=== PATIENT | female | born 1965 | race Caucasian/White ===

== ENCOUNTER → 2020-01-07 | Emergency (ER) | payer SELFPAY | END | disposition left against medical advice (07) | LOC: ER FS 18:08 | DX: M79.605 Pain in left leg (principal); W19.XXXA Unspecified fall, initial encounter ==

== ENCOUNTER → 2020-02-01 | Outpatient (CLI) | payer BC ==
--- NOTE | 2020-02-01 10:37 | Diagnostic Imaging Report ---
INDICATION: Left ankle pain, fall. COMPARISON: None. FINDINGS: Three views of the left ankle demonstrate no fracture or dislocation. The articular surfaces are age-appropriate. No osseous lesion or foreign body. IMPRESSION: No fracture identified. Dictated by: Dictated on workstation # [id number]
== END ==
LOC: RAD FS 09:42
PROVIDERS: ATTEND Nurse Practitioner
DX: M25.572 Pain in left ankle and joints of left foot (principal); W19.XXXA Unspecified fall, initial encounter
CPT/HCPCS: 73610

== ENCOUNTER → 2020-02-05 | Outpatient (CLI) | payer BC ==
--- NOTE | 2020-02-05 10:39 | Diagnostic Imaging Report ---
PROCEDURE: MRI left joint lower extremity without contrast. TECHNIQUE: Multiplanar, multisequence non contrast-enhanced MRI of the left lower extremity was accomplished. INDICATION: Twisting injury a month ago. Possible ruptured Achilles tendon. Pain. EXAMINATION: Left lower extremity MRI from 02/05/2020. FINDINGS: Full-thickness tear of the Achilles tendon is noted proximal to the insertion at the posterior calcaneus. There is a focal rather prominent gap and area of retraction which measures 5.3 cm in craniocaudal dimension. Proximal tendon is retracted proximal to the posterior malleolus. There is some surrounding edema and fluid. The posterior calcaneus itself is unremarkable. Plantar fascia is unremarkable. The peroneal tendons are intact. The extensor and flexor tendons are intact. The anterior and posterior inferior tibiofibular ligaments appear intact. Anterior talofibular ligament and posterior talofibular ligament are intact. Deltoid ligament is unremarkable. The talar dome is unremarkable. Ankle mortise is intact. IMPRESSION: 1. Retracted fairly significant tear of the Achilles tendon as described. Remaining tendons and ligaments are intact. Dictated by: Dictated on workstation # [id number]
== END ==
LOC: RAD 08:54
PROVIDERS: ATTEND Nurse Practitioner
DX: S86.012A Strain of left Achilles tendon, initial encounter (principal); X58.XXXA Exposure to other specified factors, initial encounter
CPT/HCPCS: 73721

== ENCOUNTER 2020-04-14 22:40 | Emergency (ER) | payer BC ==
[~2020-04-14] VITALS: Ht 167.7 cm; Wt 104.0 kg
[2020-04-14] MEDS ORDERED: morphine INJ 10 MG/ML 1ML (SYR OR VIAL) IVP STA (22:59)
[2020-04-14] MEDS ORDERED: KETOROLAC 30 MG/ML VIAL IVP STA (22:59)
[2020-04-14] MEDS ORDERED: NS IV 1000 ML 1,000 ML IV STA (22:59)
[2020-04-14] MEDS ORDERED: ONDANSETRON 4 MG/2 ML (SDV) Z0FRAN IVP STA (22:59)
--- NOTE | 2020-04-14 23:06 | ED General ---
General Chief Complaint: Post OP Complications/Pain Stated Complaint: CHILLS,FEVER,LT ACHILLES TENDON PAIN/SWELLING Nursing Triage Note: PT AMBULATE TO ROOM FS02 WITH C/O PAIN TO LEFT ANKLE AFTER ACHILES TENDON SURGERY. PT REPORTS FEVER AND CHILLS AT HOME STARTING TODAY. PT STATES THAT ANKLE INCISION SITE HAS OPENED UP AT HOME. PT STATES THAT THE SITE HAS INCREASED IN PAIN AND SWELLING. PT DENIES DRAINAGE OF WOUND. Nursing Sepsis Screen: Possible Severe Sepsis Risk Source of Information: Patient History of Present Illness Date Seen by Provider: Apr 14, 2020 Time Seen by Provider: 22:44 Initial Comments 54 yo female presenting with complaints of fever up to 101.7 F at home with increased pain to left ankle. She had surgery for ruptured achilles tendon [address] Ba in [place]. She recently went back to work and has not been elevating her foot as much. In the last few days she has had increased pain and redness. She had a scab come off and there was a small area that she reports was open on her scar from the surgery in January. She has had increas ed swelling and redness since going back to work. The redness, pain, swelling and fever was more severe tonight and the fever was new. She had tried taking Tylenol and then the hydrocodone after getting off work around 5 PM. When this was not helping with her pain she took oxycodone around 10 PM. Her friend and family made her come into the emergency department after that to be evaluated. She had missed a follow-up appointment with Dr. Ba due to being on quarantine. She has a follow-up appointment on Saturday with Dr. Ba and was hoping to wait until then to see him about the increased redness swelling and pain. However tonight when she was having the fever and chills her friends made her come in to be seen. Modifying Factors: improves with Immobilization; worse with Movement Associated Systoms: No Chest Pain, No Cough, No Diaphoresis; Fever/Chills; No Headaches, No Loss of Appetite; Nausea/Vomiting (after taking hydrocodone without eating tonight she was nauseated); No Seizure, No Shortness of Air, No Syncope, No Weakness; Other (increasing redness and swelling to LLE) Allergies and Home Medications Allergies Coded Allergies: No Known Drug Allergies (Unverified , 04/14/20) Home Medications Bupropion HCl 300 Mg Tab.er.24h, 300 MG PO DAILY, (Reported) Doxycycline Hyclate 100 Mg Tablet, 100 MG PO BID Prescribed by: MINE LATIF on 04/15/20 001 Escitalopram Oxalate 20 Mg Tablet, 20 MG PO DAILY, (Reported) Oxycodone HCl/Acetaminophen 1 Each Tablet, 1 EACH PO Q6H PRN for PAIN-SEVERE (8- 10) Prescribed by: MINE LATIF on 04/15/2017 Sulfamethoxazole/Trimethoprim 1 Each Tablet, 1 EACH PO BID Prescribed by: MINE LATIF on 04/15/2016 Patient Home Medication List Home Medication List Reviewed: Yes Review of Systems Review of Systems Constitutional: chills, dizziness, fever, malaise EENTM: no symptoms reported Respiratory: no symptoms reported Cardiovascular: No chest pain; palpitations Gastrointestinal: nausea (after taking hydrocodone on empty stomach); No vomiting Genitourinary: no symptoms reported Musculoskeletal: see HPI, other (increasing pain and swelling with redness to left achilles area over the last week or two but more severe in last few days and fever with chills tonight) Skin: change in color (increasing redness and swelling to left achilles area in last few days but worse tonight) Psychiatric/Neurological: No Symptoms Reported Past Zulrdhi-Oagmgy-Fgumtd Hx Past Med/Social Hx: Reviewed Nursing Past Med/Soc Hx Patient Social History Recent Infectious Disease Expo: No Past Medical History Surgeries: Yes Orthopedic (Achilles tendon repair Jan 2020) Respiratory: No Cardiac: No Neurological: No Reproductive Disorders: No Genitourinary: No Gastrointestinal: No Musculoskeletal: Yes (achilles tendon rupture with surgery Jan 2020) Endocrine: No HEENT: No Psychosocial: Yes Anxiety Physical Exam Vital Signs Vital Signs - First Documented 04/14/20 04/15/20 22:48 00:50 Temp 37.8 Pulse 129 Resp 19 B/P (MAP) 119/87 (98) Pulse Ox 98 O2 Delivery Room Air Capillary Refill : Less Than 3 Seconds Height, Weight, BMI Height: '" Weight: lbs. oz. kg; 36.00 BMI Method: General Appearance: Mild Distress, Obese HEENT: PERRL/EOMI Neck: Full Range of Motion, Non Tender, Supple Respiratory: Chest Non Tender, Lungs Clear, Normal Breath Sounds, No Accessory Muscle Use, No Respiratory Distress Cardiovascular: No Murmur, Normal Peripheral Pulses, Tachycardia Extremity: Normal Capillary Refill; No Normal Range of Motion (decreased ROM of left ankle due to pain and swelling); Inflammation (LLE), Pedal Edema (LLE ), Swelling (LLE), Other (pain with palpation of left achilles tendon area) Neurologic/Psychiatric: Alert, Oriented x3, estate and trust tax principal II-XII Norm as Tested Skin: Warm/Dry, Erythema (left achilles tendon and posterior ankle area) Focused Exam Lactate Level 04/14/20 23:21: Lactic Acid Level 2.00 Lactic Acid Level Laboratory Tests Test 04/14/20 23:21 Lactic Acid Level 2.00 MMOL/L (0.50-2.00) Progress/Results/Core Measures Suspected Sepsis Recent Fever Within 48 Hours: Yes Infection Criteria Present: Suspected New Infection New/Unexplained Altered Menta: No Sepsis Screen: Possible Severe Sepsis Risk SIRS Temperature: Pulse: 129 Respiratory Rate: 19 Laboratory Tests 04/14/20 23:21: White Blood Count 17.7H Blood Pressure 119 /87 Mean: 98 04/14/20 23:21: Lactic Acid Level 2.00 Laboratory Tests 04/14/20 23:21: Creatinine 0.72, Platelet Count 316, Total Bilirubin 0.7 Results/Orders Lab Results Laboratory Tests Test 04/14/20 23:21 Range/Units White Blood Count 17.7 H 4.3-11.0 10^3/uL Red Blood Count 4.20 L 4.35-5.85 10^6/uL Hemoglobin 12.8 11.5-16.0 G/DL Hematocrit 38 35-52 % Mean Corpuscular Volume 91 80-99 FL Mean Corpuscular Hemoglobin 30 25-34 PG Mean Corpuscular Hemoglobin Concent 34 32-36 G/DL Red Cell Distribution Width 12.5 10.0-14.5 % Platelet Count 316 130-400 10^3/uL Mean Platelet Volume 9.4 7.4-10.4 FL Immature Granulocyte % (Auto) 1 % Neutrophils (%) (Auto) 87 H 42-75 % Lymphocytes (%) (Auto) 6 L 12-44 % Monocytes (%) (Auto) 6 0-12 % Eosinophils (%) (Auto) 0 0-10 % Basophils (%) (Auto) 0 0-10 % Neutrophils # (Auto) 15.4 H 1.8-7.8 X 10^3 Lymphocytes # (Auto) 1.0 1.0-4.0 X 10^3 Monocytes # (Auto) 1.1 H 0.0-1.0 X 10^3 Eosinophils # (Auto) 0.0 0.0-0.3 10^3/uL Basophils # (Auto) 0.1 0.0-0.1 10^3/uL Immature Granulocyte # (Auto) 0.1 0.0-0.1 10^3/uL Neutrophils % (Manual) 91 % Lymphocytes % (Manual) 1 % Monocytes % (Manual) 8 % Toxic Granulation 4+ Sodium Level 137 135-145 MMOL/L Potassium Level 4.0 3.6-5.0 MMOL/L Chloride Level 102 98-107 MMOL/L Carbon Dioxide Level 21 21-32 MMOL/L Anion Gap 14 5-14 MMOL/L Blood Urea Nitrogen 17 7-18 MG/DL Creatinine 0.72 0.60-1.30 MG/DL Estimat Glomerular Filtration Rate > 60 BUN/Creatinine Ratio 24 Glucose Level 155 H 70-105 MG/DL Lactic Acid Level 2.00 0.50-2.00 MMOL/L Calcium Level 10.0 8.5-10.1 MG/DL Corrected Calcium 8.5-10.1 MG/DL Total Bilirubin 0.7 0.1-1.0 MG/DL Aspartate Amino Transf (AST/SGOT) 30 5-34 U/L Alanine Aminotransferase (ALT/SGPT) 42 0-55 U/L Alkaline Phosphatase 63 40-136 U/L C-Reactive Protein 5.21 H <0.50 MG/DL Total Protein 7.7 6.4-8.2 GM/DL Albumin 4.9 H 3.2-4.5 GM/DL My Orders Orders - MINE LATIF MD Cbc With Automated Diff (04/14/20 22:59) Comprehensive Metabolic Panel (04/14/20 22:59) Blood Culture (04/14/20 22:59) Ed Iv/Invasive Line Start (04/14/20 22:59) Crp Fs (04/14/20 22:59) Lactic Acid Analyzer (04/14/20 22:59) Ns Iv 1000 Ml (Sodium Chloride 0.9%) (04/14/20 22:59) Morphine Injection (Morphine Injection (04/14/20 22:59) Ondansetron Injection (Zofran Injectio (04/14/20 22:59) Ketorolac Injection (Toradol Injection) (04/14/20 22:59) Cefazolin Injection (Ancef Injection) (04/14/20 23:30) Vancomycin Injection (Vancomycin Injecti (04/14/20 23:30) Cefazolin Injection (Ancef Injection) (04/14/20 23:30) Manual Differential (04/14/20 23:21) Medications Given in ED Current Medications Medications Dose Ordered Sig/Ashlee Route Start Time Stop Time Status Last Admin Dose Admin Cefazolin Sodium 1000 mg/Sterile Water 10 ml @ 200 mls/hr ONCE ONCE IV 04/14/20 23:30 04/14/20 23:32 DC 04/14/20 23:35 200 MLS/HR Cefazolin Sodium 1000 mg/Sterile Water 10 ml @ 200 mls/hr ONCE ONCE IV 04/14/20 23:30 04/14/20 23:32 DC 04/14/20 23:36 200 MLS/HR Vancomycin HCl 1000 mg/Sodium Chloride 250 ml @ 250 mls/hr ONCE ONCE IV 04/14/20 23:30 04/15/20 00:29 DC 04/14/20 23:35 250 MLS/HR Vital Signs/I&O 04/14/20 04/15/20 22:48 00:50 Temp 37.8 Pulse 129 78 Resp 19 17 B/P (MAP) 119/87 (98) 124/67 Pulse Ox 98 O2 Delivery Room Air Room Air 04/14/20 23:59 Intake Total 20 ml Balance 20 ml Capillary Refill : Less Than 3 Seconds Blood Pressure Mean: 98 Progress Note #1: Progress Note check labs with blood culture and lactic acid. Give IVF for tachycardia and concern for sepsis due to reported fever at home with possible source of infection at the incision site of left achilles tendon repair from Feb 09, 2020. Morphine 4mg IV for pain, Toradol 30 mg IV for pain, Zofran 4 mg IV for nausea. Once her cultures have been drawn will dose with Vancomycin and Ancef. Progress Note #2: Time: 23:41 Progress Note CBC came back showing an elevated WBC count of 17.7K with left shift. Lactic Acid, CRP and chemistry still pending. IVF infusing along with antibiotics. Progress Note #3: Time: 00:05 Progress Note Chemistry shows elevation of CRP but Lactic acid is normal at 2. She has improved vital signs and pain with treatment as her heart rate is now down to 104. D/w Dr. Ba and she does have some SIRS criteria but with improving symptoms and vital signs will treat with the dose of antibiotics here and discharge on Bactrim DS and Doxycycline both. Then she has appt to see him on Saturday at 845 am. Off work until seen by him and be more aggressive with elevation of the foot and ankle. Progress Note #4: Time: 00:43 Progress Note IVF and Vancomycin finished infusing. Pt feeling better and heart rate down to 78 bpm. Discharge to home to take antibiotics as directed by Dr. Ba. Departure Impression Primary Impression: Cellulitis of left ankle Additional Impressions: Left ankle swelling Fever and chills Disposition: HOME, SELF-CARE Condition: Improved Departure-Patient Inst. Decision time for Depature: 00:18 Referrals: TITUS SIEGEL MD (PCP/Family) Primary Care Physician SAL BA MD Patient Instructions: Fever, Adult ED, Cellulitis (Skin Infection), Adult ED Add. Discharge Instructions: Take antibiotics as prescribed and follow up with Dr. Ba on Saturday as scheduled. Elevate your foot and ankle above waist level as much as possible over the next 4 days while waiting to see Dr. Ba for follow up. Take Ibuprofen or Naproxen to help with inflammation and pain. Use the Narcotic pain medicine to help with severe pain. Ice 20-30 minutes every few hours as needed for pain and swelling. Scripts Oxycodone HCl/Acetaminophen (Oxycodone-Acetaminophen 5-325) 1 Each Tablet 1 EACH PO Q6H PRN for PAIN-SEVERE (8-10) MDD 6 for 4 Days, #16 TAB 0 Refills Prov: MINE LATIF MD 04/15/20 Sulfamethoxazole/Trimethoprim (Bactrim Ds Tablet) 1 Each Tablet 1 EACH PO BID for cellulitis for 10 Days, #20 TAB 0 Refills Prov: MINE LATIF MD 04/15/20 Doxycycline Hyclate (Doxycycline Hyclate) 100 Mg Tablet 100 MG PO BID for cellulitis for 10 Days, #20 TAB 0 Refills Prov: MINE LATIF MD 04/15/20 Work/School Note: Work Release Form Date Seen in the Emergency Department: Apr 14, 2020 Return to Work: Apr 18, 2020 Restrictions: Need Release from Doctor Other Restrictions Listed Below: See Dr. Mejia Rene Apr 18. Off work and elevate left leg until cleared MINE LATIF MD Apr 14, 2020 23:06
[2020-04-14] MEDS ORDERED: ESCI20TA56 PO (23:19)
[2020-04-14] MEDS ORDERED: BUPR300T98 PO (23:19)
[2020-04-14] MEDS ORDERED: ceFAZolin INJECTION 1,000 MG in WATER (STERILE) FOR INJECTION 10 ML IV ONE ×4 (23:30)
[2020-04-14] MEDS ORDERED: VANCOMYCIN INJECTION 1,000 MG in NS (IVPB) 250 ML IV ONE (23:30)
[2020-04-14 23:32] LABS: HEMATOCRIT 38 % (35-52); HEMOGLOBIN 12.8 G/DL (11.5-16.0); LYMPHOCYTES % (AUTO) 6 % (12-44); MEAN CORPUSCULAR HEMOGLOBIN 30 PG (25-34); MEAN CORPUSCULAR HGB CONC 34 G/DL (32-36); MEAN CORPUSCULAR VOLUME 91 FL (80-99); MEAN PLATELET VOLUME 9.4 FL (7.4-10.4); MONOCYTES % (AUTO) 6 % (0-12); NEUTROPHILS % (AUTO) 87 % (42-75); PLATELET COUNT 316 10^3/uL (130-400); WHITE BLOOD COUNT 17.7 10^3/uL (4.3-11.0)
[2020-04-14 23:33] LABS: BASOPHILS # (AUTO) 0.1 10^3/uL (0.0-0.1); BASOPHILS % (AUTO) 0 % (0-10); EOSINOPHILS % (AUTO) 0 % (0-10); MONOCYTES # (AUTO) 1.1 X 10^3 (0.0-1.0); NEUTROPHILS # (AUTO) 15.4 X 10^3 (1.8-7.8)
[2020-04-14 23:45] LABS: LYMPHOCYTES % (MANUAL) 1 %; MONOCYTES % (MANUAL) 8 %; NEUTROPHILS % (MANUAL) 91 %
[2020-04-14 23:46] LABS: TOXIC GRANULATION/VACUOLAZATIO 4+
[2020-04-14 23:51] LABS: ALANINE AMINOTRANSFERASE 42 U/L (0-55); ALKALINE PHOSPHATASE 63 U/L (40-136); BILIRUBIN,TOTAL 0.7 MG/DL (0.1-1.0); BUN/CREATININE RATIO 24; CARBON DIOXIDE 21 MMOL/L (21-32); CHLORIDE 102 MMOL/L (98-107); CREATININE SERUM 0.72 MG/DL (0.60-1.30); GFR ESTIMATED > 60; GLUCOSE 155 MG/DL (70-105); SODIUM 137 MMOL/L (135-145)
[2020-04-14 23:52] LABS: ALBUMIN 4.9 GM/DL (3.2-4.5); TOTAL PROTEIN 7.7 GM/DL (6.4-8.2)
[2020-04-15] MEDS ORDERED: SULF1TAB35 PO (00:17)
[2020-04-15] MEDS ORDERED: DOXY100T2 PO (00:17)
[2020-04-15] MEDS ORDERED: OXYC-471 PO (00:17)
[2020-04-15 00:50] VITALS: BP 124/67
== END 2020-04-15 00:50 | disposition home or self-care (01) ==
LOC: EDUNIT# 22:40 → ER FS 22:42
DX: L03.116 Cellulitis of left lower limb (principal); R50.9 Fever, unspecified; E66.9 Obesity, unspecified; F41.9 Anxiety disorder, unspecified; Z68.36 Body mass index [BMI] 36.0-36.9, adult
CPT/HCPCS: 36415; 80053; 83605; 85007; 85027; 86141; 87040

== ENCOUNTER 2020-04-18 05:04 | Emergency (ER) | payer BC ==
[~2020-04-18] VITALS: Ht 167.7 cm; Wt 104.3 kg
[~2020-04-18 05:04] MED LIST: BUPR300T98 PO; DOXY100T2 PO; ESCI20TA56 PO; OXYC-471 PO; SULF1TAB35 PO
[2020-04-18 05:52] LABS: BASOPHILS % (AUTO) 0 % (0-10); EOSINOPHILS % (AUTO) 1 % (0-10); HEMATOCRIT 33 % (35-52); LYMPHOCYTES % (AUTO) 10 % (12-44); MEAN CORPUSCULAR HEMOGLOBIN 30 PG (25-34); MEAN CORPUSCULAR HGB CONC 33 G/DL (32-36); MEAN CORPUSCULAR VOLUME 92 FL (80-99); MEAN PLATELET VOLUME 9.3 FL (7.4-10.4); MONOCYTES % (AUTO) 10 % (0-12); NEUTROPHILS % (AUTO) 78 % (42-75); PLATELET COUNT 313 10^3/uL (130-400); WHITE BLOOD COUNT 10.4 10^3/uL (4.3-11.0)
[2020-04-18 05:53] LABS: EOSINOPHILS # (AUTO) 0.1 10^3/uL (0.0-0.3); MONOCYTES # (AUTO) 1.1 X 10^3 (0.0-1.0); NEUTROPHILS # (AUTO) 8.1 X 10^3 (1.8-7.8)
[2020-04-18 06:10] LABS: CARBON DIOXIDE 24 MMOL/L (21-32); CHLORIDE 101 MMOL/L (98-107); POTASSIUM 4.1 MMOL/L (3.6-5.0); SODIUM 136 MMOL/L (135-145)
[2020-04-18 06:11] LABS: ALANINE AMINOTRANSFERASE 42 U/L (0-55); ALBUMIN 4.1 GM/DL (3.2-4.5); ALKALINE PHOSPHATASE 62 U/L (40-136); BILIRUBIN,TOTAL 0.6 MG/DL (0.1-1.0); BUN/CREATININE RATIO 13; CALCIUM 9.6 MG/DL (8.5-10.1); CREATININE SERUM 0.68 MG/DL (0.60-1.30); GFR ESTIMATED > 60; GLUCOSE 162 MG/DL (70-105); TOTAL PROTEIN 7.4 GM/DL (6.4-8.2)
--- NOTE | 2020-04-18 06:45 | Progress Note ---
Progress Note Care assumed from previous emergency physician. H&P and plan of care reviewed. The patient has been screened and accepted for placement at [facility] in [place]. However, due to due to staffing shortage the patient was kept in the emergency department throughout the duration of my shift. Routine home medications were given. Patient and family member were updated with status of placement. The plan is to contact the facility at 10 AM on 04/18/2020. Care will be transiti oned to oncLIZABETH Benavidez DO Apr 18, 2020 06:45
--- NOTE | 2020-04-18 06:53 | ED General ---
General Chief Complaint: Post OP Complications/Pain Stated Complaint: LEFT FOOT INJURY Nursing Triage Note: PT TO ROOM FS01 VIA W/C WITH C/O SWELLING, PAIN, AND DRAINAGE FROM LEFT ANKLE X2 MONTHS AFTER ANKLE SURGERY. PT WAS SEEN IN THIS ED X3 DAYS AGO FOR PAIN AND SWELLING AND WAS GIVEN ABX. PT STATES SHE HAS BEEN TAKING THE ABX AND SYMPTOMS HAVE GOTTEN WORSE. REDDNESS, SWELLING, AND RED TINGED DRAINAGE NOTED. Nursing Sepsis Screen: No Definite Risk History of Present Illness Date Seen by Provider: Apr 18, 2020 Time Seen by Provider: 05:15 Initial Comments Patient is a 54-year-old female who underwent Achilles tendon repair in January [address] Ba who was evaluated in this emergency department 4 days ago for soft tissue infection. At that time, the patient was placed on doxycycline and Bactrim for presumed MRSA infection. Patient had complained of low-grade fevers with redness and swelling to the ankle with plans to follow-up with Dr. Ba later this morning in clinic. Despite antibiotics, the patient has had increased redness swelling and increased weepage from the left ankle wound. She has continued to have low-grade fevers. No nausea or vomiting. No dizziness or lightheadedness. No other acute symptoms or complaints Timing/Duration: 5-6 Days Severity: Moderate Modifying Factors: improves with Medication, improves with Movement Associated Systoms: Fever/Chills, Rash Allergies and Home Medications Allergies Coded Allergies: No Known Drug Allergies (Unverified , 04/14/20) Home Medications Bupropion HCl 300 Mg Tab.er.24h, 300 MG PO DAILY, (Reported) Doxycycline Hyclate 100 Mg Tablet, 100 MG PO BID Prescribed by: MINE LATIF on 04/15/2016 Escitalopram Oxalate 20 Mg Tablet, 20 MG PO DAILY, (Reported) Oxycodone HCl/Acetaminophen 1 Each Tablet, 1 EACH PO Q6H PRN for PAIN-SEVERE (8- 10) Prescribed by: MINE LATIF on 04/15/2017 Sulfamethoxazole/Trimethoprim 1 Each Tablet, 1 EACH PO BID Prescribed by: MINE LATIF on 04/15/2016 Patient Home Medication List Home Medication List Reviewed: Yes Review of Systems Review of Systems Constitutional: see HPI Respiratory: see HPI Cardiovascular: see HPI Gastrointestinal: see HPI Genitourinary: see HPI Musculoskeletal: see HPI Skin: see HPI Psychiatric/Neurological: See HPI Hematologic/Lymphatic: See HPI Immunological/Allergic: see HPI All Other Systems Reviewed Negative Unless Noted: Yes Past Khuicxb-Xepcys-Wlapon Hx Past Med/Social Hx: Reviewed Nursing Past Med/Soc Hx Patient Social History Recent Infectious Disease Expo: No Past Medical History Surgeries: Yes Orthopedic Respiratory: No Cardiac: No Neurological: No Reproductive Disorders: No Genitourinary: No Gastrointestinal: No Musculoskeletal: Yes (achilles tendon rupture with surgery Jan 2020) Endocrine: No HEENT: No Psychosocial: Yes Anxiety Physical Exam Vital Signs Vital Signs - First Documented 04/18/20 05:15 Temp 36.9 Pulse 88 Resp 18 B/P (MAP) 165/85 (111) O2 Delivery Room Air Capillary Refill : Less Than 3 Seconds Height, Weight, BMI Height: '" Weight: lbs. oz. kg; 37.00 BMI Method: General Appearance: WD/WN, Anxious Eyes: Bilateral Eye Normal Inspection, Bilateral Eye PERRL HEENT: PERRL/EOMI, Normal ENT Inspection, Pharynx Normal Respiratory: Lungs Clear Cardiovascular: Regular Rate, Rhythm Gastrointestinal: Non Tender, Soft Neurologic/Psychiatric: Alert Skin: Rash, Other (Induration swelling and redness with serous weepage from left ankle surgical scar. Redness and induration spreads from previous marked marked region of cellulitis) Focused Exam Sepsis Stage: Ruled Out Lactate Level 04/18/20 05:50: Lactic Acid Level 1.11 Lactic Acid Level Laboratory Tests Test 04/18/20 05:50 Lactic Acid Level 1.11 MMOL/L (0.50-2.00) Progress/Results/Core Measures Suspected Sepsis Recent Fever Within 48 Hours: Yes Infection Criteria Present: Documented Infection New/Unexplained Altered Menta: No Sepsis Screen: No Definite Risk SIRS Temperature: Pulse: 88 Respiratory Rate: 18 Laboratory Tests 04/18/20 05:45: White Blood Count 10.4 Blood Pressure 165 /85 Mean: 111 04/18/20 05:50: Lactic Acid Level 1.11 Laboratory Tests 04/18/20 05:45: Creatinine 0.68, Platelet Count 313, Total Bilirubin 0.6 Results/Orders Lab Results Laboratory Tests Test 04/18/20 05:45 04/18/20 05:50 Range/Units White Blood Count 10.4 4.3-11.0 10^3/uL Red Blood Count 3.62 L 4.35-5.85 10^6/uL Hemoglobin 11.0 L 11.5-16.0 G/DL Hematocrit 33 L 35-52 % Mean Corpuscular Volume 92 80-99 FL Mean Corpuscular Hemoglobin 30 25-34 PG Mean Corpuscular Hemoglobin Concent 33 32-36 G/DL Red Cell Distribution Width 12.6 10.0-14.5 % Platelet Count 313 130-400 10^3/uL Mean Platelet Volume 9.3 7.4-10.4 FL Immature Granulocyte % (Auto) 1 % Neutrophils (%) (Auto) 78 H 42-75 % Lymphocytes (%) (Auto) 10 L 12-44 % Monocytes (%) (Auto) 10 0-12 % Eosinophils (%) (Auto) 1 0-10 % Basophils (%) (Auto) 0 0-10 % Neutrophils # (Auto) 8.1 H 1.8-7.8 X 10^3 Lymphocytes # (Auto) 1.0 1.0-4.0 X 10^3 Monocytes # (Auto) 1.1 H 0.0-1.0 X 10^3 Eosinophils # (Auto) 0.1 0.0-0.3 10^3/uL Basophils # (Auto) 0.0 0.0-0.1 10^3/uL Immature Granulocyte # (Auto) 0.1 0.0-0.1 10^3/uL Sodium Level 136 135-145 MMOL/L Potassium Level 4.1 3.6-5.0 MMOL/L Chloride Level 101 98-107 MMOL/L Carbon Dioxide Level 24 21-32 MMOL/L Anion Gap 11 5-14 MMOL/L Blood Urea Nitrogen 9 7-18 MG/DL Creatinine 0.68 0.60-1.30 MG/DL Estimat Glomerular Filtration Rate > 60 BUN/Creatinine Ratio 13 Glucose Level 162 H 70-105 MG/DL Calcium Level 9.6 8.5-10.1 MG/DL Corrected Calcium 9.5 8.5-10.1 MG/DL Total Bilirubin 0.6 0.1-1.0 MG/DL Aspartate Amino Transf (AST/SGOT) 22 5-34 U/L Alanine Aminotransferase (ALT/SGPT) 42 0-55 U/L Alkaline Phosphatase 62 40-136 U/L C-Reactive Protein 14.35 H <0.50 MG/DL Total Protein 7.4 6.4-8.2 GM/DL Albumin 4.1 3.2-4.5 GM/DL Lactic Acid Level 1.11 0.50-2.00 MMOL/L My Orders Orders - LIZABETH RAMOS DO Cbc With Automated Diff (04/18/20 05:34) Comprehensive Metabolic Panel (04/18/20 05:34) Crp Fs (04/18/20 05:34) Lactic Acid Analyzer (04/18/20 05:34) Vital Signs/I&O 04/18/20 05:15 Temp 36.9 Pulse 88 Resp 18 B/P (MAP) 165/85 (111) O2 Delivery Room Air Capillary Refill : Less Than 3 Seconds Blood Pressure Mean: 111 Departure Communication (Admissions) Labs reviewed with patient and Dr. Ba. There is a video request the patient be discharged from the ED so she may follow-up with him in clinic today as originally planned. It is anticipated the patient will require hospital admi ssion for IV antibiotics for failed outpatient therapy. Further management per Dr. Ba. Patient is comfortable with current treatment plan. Impression Primary Impression: Cellulitis of left ankle Disposition: HOME, SELF-CARE Condition: Stable Departure-Patient Inst. Referrals: TITUS SIEGEL MD (PCP/Family) Primary Care Physician Add. Discharge Instructions: Please follow-up with Dr. BA this morning in clinic as scheduled. LIZABETH RAMOS DO Apr 18, 2020 06:53
[2020-04-18 07:00] VITALS: BP 159/89
--- NOTE | 2020-04-18 10:08 | HISTORY AND PHYSICAL ---
DATE OF SERVICE: ADMISSION HISTORY AND PHYSICAL REASON FOR ADMISSION: Left Achilles and ankle cellulitis, status post Achilles repair. HISTORY OF PRESENT ILLNESS: The patient is a 54-year-old female, who underwent a left Achilles tendon repair 10 weeks ago. She has been doing well until when she began to experience some erythema. She presented to the emergency department and was treated with vancomycin IV and sent home on doxycycline and Bactrim over the weekend. Her pain became more localized to her Achilles and she noticed discharge from her incision this morning. She denies new injuries. She reports some mild low-grade fevers, reports no systemic illnesses. REVIEW OF SYSTEMS: No recent chest pain, shortness of breath and no dysuria. PAST MEDICAL HISTORY: Depression. PAST SURGICAL HISTORY: As above, tonsillectomy and hysterectomy. FAMILY HISTORY: Noncontributory. MEDICATIONS: Wellbutrin and Lexapro. ALLERGIES: No known drug allergies. SOCIAL HISTORY: The patient denies alcohol and tobacco use. PHYSICAL EXAMINATION: GENERAL: The patient is a well-developed, well-nourished, in no acute distress. HEENT: Normocephalic and atraumatic. Pupils are equal, round and reactive to light. Oropharynx is clear. NECK: Supple and no lymphadenopathy. LUNGS: Clear to auscultation bilaterally. HEART: Regular rate and rhythm. ABDOMEN: Soft, nontender and nondistended. EXTREMITIES: The left Achilles demonstrates erythema and fluctuance superiorly. There is a slight amount of clear discharge superiorly. Her suture line is otherwise intact. She has no edema at the ankle joint or effusion noted. IMPRESSION: Left Achilles infection, status post Achilles repair. PLAN: Irrigation and debridement of left Achilles. We discussed the risks, benefits, options, ramifications and recovery specifically possible wound healing problems and possible need for multiple procedures. Job ID: [id number] DocumentID: [id number] Dictated Date: 04/18/2020 09:08:47 [employer] Car [employer] Date: 04/18/2020 09:21:19 Dictated By: SAL ROBERTS MD
== END 2020-04-18 07:00 | disposition home or self-care (01) ==
LOC: EDUNIT# 05:04 → ER FS 05:07
DX: L03.116 Cellulitis of left lower limb (principal); F41.9 Anxiety disorder, unspecified
CPT/HCPCS: 36415; 80053; 83605; 85025; 86141; 99281

== ENCOUNTER 2020-04-18 10:13 | Inpatient (IN) | payer BC ==
[2020-04-18] VITALS (11 sets, daily range): BP systolic 121–162; BP diastolic 53–110
[~2020-04-18] VITALS: Ht 167.6 cm; Wt 113.2 kg
[2020-04-18] MEDS ORDERED: morphine INJ 4 MG/ML 1 ML (VIAL/SYRINGE) IVP PRN (11:30)
--- NOTE | 2020-04-18 12:52 | History & Physical-Hospitalist ---
History of Present Illness HPI/Chief Complaint Patient is a 54yo female who had a L Achilles tendon repair in January [address] Ba. She had been progressing well until , when she noticed some swelling and pain. She also noted mild fevers, chills and generalized body aches. She presented to the [facility] ED and was treated with Vancomycin and discharged home with doxycycline and Bactrim. Despite the abx she experienced worsening pain and swelling over the weekend, and began to notice an "oozing and nasty scab", and felt like it "wasn't healing right". 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 She was scheduled for a follow up appointment with Dr. Ba two weeks ago, but was unable to make it as she was quarantined at home due to a possible COVID exposure at work. She was also scheduled for a follow up appointment this morning, and during this visit she was told she would need to be hospitalized and was scheduled for an irrigation and debridement today. Source: patient Exam Limitations: no limitations Date Seen 04/18/20 Time Seen by a Provider: 12:15 Attending Physician Jos Ba MD PCP Kenzie Sadler MD Referring Physician Date of Admission Apr 18, 2020 at 10:35 Home Medications & Allergies Home Medications Reviewed patient Home Medication Reconciliation performed by pharmacy medication reconciliations automation technician and/or nursing. Patients Allergies have been reviewed. Allergies Allergies Coded Allergies No Known Drug Allergies (Unverified04/14/20) Past Uqqcwiq-Xgfjqw-Skuxwx Hx Patient Social History Employed/Student: employed Alcohol Use: Denies Use Smoking Status: Never a Smoker Recent Foreign Travel: No Contact w/other who traveled: No Past Medical History Surgeries: Hysterectomy, Orthopedic, Tonsillectomy Reproductive: No Psychosocial: Anxiety Review of Systems Constitutional: chills; No dizziness; fever; No malaise EENTM: No hearing loss, No blurred vision, No double vision, No vision loss, No nose congestion, No throat pain Respiratory: No cough, No short of breath, No wheezing Cardiovascular: No chest pain, No palpitations, No syncope Gastrointestinal: No abdominal pain, No constipation, No diarrhea; nausea; No vomiting Genitourinary: no symptoms reported Musculoskeletal: see HPI, joint pain Skin: see HPI Psychiatric/Neurological: Anxiety; Denies Headache, Denies Numbness, Denies Tingling Physical Exam Physical Exam Vital Signs Vital Signs - First Documented 04/18/20 10:40 Temp 36.7 Pulse 83 Resp 19 B/P (MAP) 153/93 (113) Pulse Ox 93 O2 Delivery Room Air Capillary Refill : Height, Weight, BMI Height: '" Weight: lbs. oz. kg; 40.29 BMI Method: General Appearance: No Apparent Distress, WD/WN HEENT: PERRL/EOMI, Pharynx Normal, Moist Mucous Membranes Neck: Full Range of Motion, Non Tender, Supple Respiratory: Normal Breath Sounds, No Accessory Muscle Use, No Respiratory Distress Cardiovascular: Regular Rate, Rhythm, No Edema, No Murmur, Normal Peripheral Pulses Gastrointestinal: Normal Bowel Sounds, Non Tender, Soft; No Distended Extremity: Normal Capillary Refill, Normal Range of Motion, Non Tender, No Calf Tenderness, Inflammation, Swelling (LLE) Neurologic/Psychiatric: Alert, Oriented x3, No Motor/Sensory Deficits Skin: Normal Color, Warm/Dry Results Results/Procedures Labs Patient resulted labs reviewed. Assessment/Plan Assessment and Plan Cellulitis of L ankle S/P L Achilles tendon repair January 2020 -Dr. Ba managing, scheduled for irrigation and debridement today -Currently on doxycycline and Bactrim PO -Continue NPO in preparation for procedure CHANDAN HARMON,MED STUDENT Apr 18, 2020 12:52
--- NOTE | 2020-04-18 13:46 | Consultation - Hospitalist ---
CHANDAN HARMON,MED STUDENT 04/18/20 1346: HPI History of Present Illness: HPI/Chief Complaint Patient is a 54yo female who had a L Achilles tendon repair in January [address] Ba. She had been progressing well until , when she noticed some swelling and pain. She also noted mild fevers, chills and generalized body ac hes. She presented to the [facility] ED and was treated with Vancomycin and discharged home with doxycycline and Bactrim. Despite the abx she experienced worsening pain and swelling over the weekend, and began to notice an "oozing and nasty scab", and felt like it "wasn't healing right". 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 She was scheduled for a follow up appointment with Dr. Ba two weeks ago, but was unable to make it as she was quarantined at home due to a possible COVID exposure at work. She was also scheduled for a follow up appointment this morning, and during this visit she was told she would need to be hospitalized and was scheduled for an irrigation and debridement today. Source: patient Exam Limitations: no limitations Date Seen 04/18/20 Attending Physician Jos Ba MD PCP Kenzie Sadler MD Referring Physician Date of Admission Apr 18, 2020 at 10:35 Home Medications & Allergies Home Medications Reviewed patient Home Medication Reconciliation performed by pharmacy medication reconciliations plastic surgery technician and/or nursing. Patients Allergies have been reviewed. Allergies Allergies Coded Allergies No Known Drug Allergies (Unverified04/14/20) Past Cpncwht-Kjzlbs-Anzxio Hx Patient Social History Employed/Student: employed Alcohol Use: Denies Use Smoking Status: Never a Smoker Recent Foreign Travel: No Contact w/other who traveled: No Past Medical History Surgeries: Hysterectomy, Orthopedic, Tonsillectomy Reproductive: No Psychosocial: Anxiety Review of Systems Constitutional: chills, fever; No malaise EENTM: No hearing loss, No blurred vision, No double vision, No vision loss, No throat pain Respiratory: No cough, No short of breath, No wheezing Cardiovascular: No chest pain, No palpitations, No syncope Gastrointestinal: No abdominal pain, No constipation, No diarrhea; nausea; No vomiting Musculoskeletal: see HPI, joint pain Skin: see HPI Psychiatric/Neurological: Anxiety; Denies Headache, Denies Numbness, Denies Tingling Physical Exam Physical Exam Vital Signs Vital Signs - First Documented 04/18/20 10:40 Temp 36.7 Pulse 83 Resp 19 B/P (MAP) 153/93 (113) Pulse Ox 93 O2 Delivery Room Air Capillary Refill : Height, Weight, BMI Height: '" Weight: lbs. oz. kg; 40.29 BMI Method: General Appearance: No Apparent Distress, WD/WN HEENT: PERRL/EOMI, Pharynx Normal, Moist Mucous Membranes Neck: Full Range of Motion, Non Tender, Supple Respiratory: Normal Breath Sounds, No Accessory Muscle Use, No Respiratory Distress Cardiovascular: Regular Rate, Rhythm, No Edema, No Murmur, Normal Peripheral Pulses Gastrointestinal: Normal Bowel Sounds, Non Tender, Soft; No Distended Extremity: Normal Capillary Refill, Normal Range of Motion, Non Tender, No Calf Tenderness, Inflammation, Swelling (LLE) Neurologic/Psychiatric: Alert, Oriented x3, No Motor/Sensory Deficits Skin: Normal Color, Warm/Dry Results Results/Procedures Labs Patient resulted labs reviewed. Assessment/Plan Assessment and Plan Assess & Plan/Chief Complaint Cellulitis of L ankle S/P L Achilles tendon repair January 2020 -Dr. Ba managing, scheduled for irrigation and debridement today -Currently on doxycycline and Bactrim PO -Continue NPO in preparation for procedure Hypertension -Continue to monitor CHUYITA STONE MD 04/18/20 1558: Past Ampxinp-Kouzxy-Nslnxt Hx Past Med/Social Hx: Reviewed Nursing Past Med/Soc Hx Patient Social History Employed/Student: employed Smoking Status: Unknown if Ever Smoked Past Medical History Psychosocial: Depression Family History Reviewed Nursing Family Hx No Pertinent Family Hx Assessment/Plan Assessment and Plan Assess & Plan/Chief Complaint Pt admitted by Dr Ba due to cellulitis following achilles tendon repair in January. Reports actually feeling better today but that last night her leg starting oozing. Saw Dr Ba today and was schedule for the OR this afternoon after failing outptient management. Discussed with Dr Ba and will defer antibiotics at this time until cultures can be taken in the OR. Keep NPO for surgery. Pain well controlled. Diagnosis/Problems Diagnosis/Problems (1) Cellulitis of left ankle Status: Acute Supervisory-Addendum Brief Verification & Attestation Participated in pt care: history, MDM, physical Personally performed: exam, history, MDM, supervision of care Care discussed with: Medical Student Procedures: n/a Results interpretation: Verified all documentation Verification and Attestation of Medical Student E/M Service A medical student performed and documented this service in my presence. I reviewed and verified all information documented by the medical student and made modifications to such information, when appropriate. I personally performed the physical exam and medical decision making. Chuyita Stone, Apr 18, 2020,15:53 CHANDAN HARMON,MED STUDENT Apr 18, 2020 13:46 CHUYITA STONE MD Apr 18, 2020 15:58
[2020-04-18] MEDS: LACTATED RINGERS 1,000 ML IV SCH ×2 (13:56→20:46)
[2020-04-18] MEDS ORDERED: fentaNYL INJECTION 100 MCG/2 ML AMP ONE (15:40)
[2020-04-18] MEDS ORDERED: MIDAZOLAM 2 MG/2 ML (VERSED) VIAL ONE (15:40)
[2020-04-18] MEDS ORDERED: MEPERIDINE (DEMEROL) INJ 50 MG/ML IVP ONE (16:00)
[2020-04-18] MEDS ORDERED: ONDANSETRON 4 MG/2 ML (SDV) Z0FRAN IVP PRN (16:00)
[2020-04-18] MEDS ORDERED: LACTATED RINGERS 1,000 ML IV PRN (16:00)
[2020-04-18] MEDS ORDERED: morphine INJ 10 MG/ML 1ML (SYR OR VIAL) IVP ONE (16:00)
[2020-04-18] MEDS ORDERED: BUPIVACAINE 0.25% 30 ML (SENSORCAINE) VIAL ONE (16:12)
--- NOTE | 2020-04-18 16:14 | Progress Note-Pre Operative ---
Pre-Operative Progress Note H&P Reviewed The H&P was reviewed, patient examined and no changes noted. Date Seen by Provider: Apr 18, 2020 Time Seen by Provider: 16:14 Date H&P Reviewed: Apr 18, 2020 Time H&P Reviewed: 16:14 Pre-Operative Diagnosis: left Achilles infection status post repair SAL ROBERTS MD Apr 18, 2020 16:14
--- NOTE | 2020-04-18 16:16 | Progress Note-Post Operative ---
Post-Operative Progess Note Surgeon (s)/Metal Engineering Process Worker (s) Surgeon SAL ROBERTS MD Metal Engineering Process Worker: Jason Mendez Pre-Operative Diagnosis left Achilles infection status post repair Post-Operative Diagnosis left Achilles infection status post repair Procedure & Operative Findings Date of Procedure 04/18/20 Procedure Performed/Findings left Lydia's irrigation and debridement Anesthesia Type GETA Estimated Blood Loss Estimated blood loss (mL): minimal Specimens/Packing Specimens Removed cultures sent Packing: none SAL ROBERTS MD Apr 18, 2020 16:16
[2020-04-18] MEDS: LACTATED RINGERS 1,000 ML IV PRN ×2 (16:22→17:38)
[2020-04-18] MEDS ORDERED: ACETAMINOPHEN 325 MG TABLET PO PRN (16:30)
[2020-04-18] MEDS ORDERED: ROCURONIUM 10 MG/ML 5 ML SYRINGE IV ONE (16:36)
[2020-04-18] MEDS ORDERED: ONDANSETRON 4 MG/2 ML (SDV) Z0FRAN ONE (16:36)
[2020-04-18] MEDS ORDERED: proPOfol 200 MG/20 ML (DIPRIVAN) VIAL IV ONE (16:36)
[2020-04-18] MEDS ORDERED: LIDOCAINE PF 2% 5 ML (XYLOCAINE) VIAL ONE (16:36)
[2020-04-18] MEDS ORDERED: LIDOCAINE JELLY 2% 6 ML SYRINGE ONE (16:36)
[2020-04-18] MEDS ORDERED: ceFAZolin INJECTION 1,000 MG ONE (16:47)
[2020-04-18] MEDS ORDERED: ceFAZolin INJECTION 1,000 MG VIAL IV ONE (17:00)
[2020-04-18] MEDS ORDERED: SEVOFLURANE (ULTANE) 15 ML INHAL SOLN ONE (17:08)
[2020-04-18] MEDS ORDERED: morphine INJ 10 MG/ML 1ML (SYR OR VIAL) ONE (17:26)
[2020-04-18] MEDS ORDERED: LACTATED RINGERS 1,000 ML IV SCH (17:30)
[2020-04-18] MEDS ORDERED: VANCOMYCIN 1,750 MG/NS 500 ML IVPB IV NR ×2 (17:30)
[2020-04-18] MEDS ORDERED: LABETALOL HCL 20 MG/4 ML VIAL ONE (17:32)
[2020-04-18] MEDS: fentaNYL INJECTION 100 MCG/2 ML AMP IVP ONE (17:42)
[2020-04-18] MEDS ORDERED: HYDROmorphone 2 MG/ML VIAL (DILAUDID) IV ONE (17:45)
[2020-04-18] MEDS: cefTRIAXone FOR IV USE 1,000 MG in WATER (STERILE) FOR INJECTION 10 ML IV SCH (18:30)
--- NOTE | 2020-04-18 19:45 | NUR ---
Pt home medications, including 8 Oxycodone are in MEDICATION ROOM LOCKUP.
[2020-04-18] MEDS: oxyCODONE/APAP 5/325MG (PERCOCET 5) TABLET PO PRN (20:53)
[2020-04-18] MEDS: morphine INJ 4 MG/ML 1 ML (VIAL/SYRINGE) IVP PRN (21:58)
[2020-04-19] VITALS (7 sets, daily range): BP systolic 112–140; BP diastolic 66–77
[2020-04-19] MEDS: oxyCODONE/APAP 5/325MG (PERCOCET 5) TABLET PO PRN ×7 (00:18→19:22)
--- NOTE | 2020-04-19 01:44 | OPERATIVE REPORT ---
DATE OF SERVICE: 04/18/2020 PREOPERATIVE DIAGNOSIS: Left Achilles infection, status post repair. POSTOPERATIVE DIAGNOSIS: Left Achilles infection, status post repair. PROCEDURE: Irrigation and debridement of left Achilles. SURGEON: Jos Roberts MD. LEATHER SCRUBBER: Jason Mendez, who assisted throughout the procedure and closed the incision. ANESTHESIA: General endotracheal by Jason Sandy CRNA. TOURNIQUET TIME: 24 minutes at 300 mmHg. ESTIMATED BLOOD LOSS: Minimal. DRAINS: None. COMPLICATIONS: None. Cultures were sent. FINDINGS: No abscess, but purulence at the superior aspect of the incision extending around the repair site. The patient was transferred to recovery room awake and stable condition. POSTOPERATIVE PLAN: Boot wear and closed assessment of the wound. DESCRIPTION OF PROCEDURE: After risks and benefits of procedure were discussed and questions were answered, informed consent was signed and placed on chart, the operative site was confirmed in the preoperative holding area initialed by the surgeon. The patient was transferred to the operating room. After adequate levels of general endotracheal anesthetic were obtained, the patient was carefully placed in the prone position, being careful to pad all bony prominences. The left lower extremity was prepped and draped in the usual sterile fashion. The incision was opened. There was some gross purulence superiorly. No abscess formation noted. No necrosis was noted. There was partial disruption of the repair. The nonabsorbable sutures were fully removed in order to remove all retained foreign bodies. The anterior aspect of the repair was intact. was partially disrupted. The wound edges were then sharply debrided, and the area was irrigated with 6 liters of pulse lavage. The wound was then closed with 2-0 Vicryl in subcutaneous layer and 3-0 nylon vertical mattress interrupted skin closure. The tourniquet was deflated. Soft dressing was applied followed by boot and the patient was transferred to recovery room awake and in stable condition. Job ID: [id number] DocumentID: [id number] Dictated Date: 04/18/2020 17:19:21 Insurance Plan Specialist Date: 04/19/2020 01:44:01 Dictated By: JOS ROBERTS MD
[2020-04-19 05:55] LABS: BASOPHILS % (AUTO) 0 % (0-10); EOSINOPHILS # (AUTO) 0.1 10^3/uL (0.0-0.3); EOSINOPHILS % (AUTO) 1 % (0-10); HEMATOCRIT 32 % (35-52); HEMOGLOBIN 10.3 g/dL (11.5-16.0); LYMPHOCYTES # (AUTO) 1.7 10^3/uL (1.0-4.0); LYMPHOCYTES % (AUTO) 18 % (12-44); MEAN CORPUSCULAR HEMOGLOBIN 30 pg (25-34); MEAN CORPUSCULAR HGB CONC 32 g/dL (32-36); MEAN CORPUSCULAR VOLUME 94 fL (80-99); MEAN PLATELET VOLUME 9.5 fL (9.0-12.2); MONOCYTES # (AUTO) 1.2 10^3/uL (0.0-1.0); MONOCYTES % (AUTO) 12 % (0-12); NEUTROPHILS # (AUTO) 6.7 10^3/uL (1.8-7.8); NEUTROPHILS % (AUTO) 69 % (42-75); PLATELET COUNT 312 10^3/uL (130-400); WHITE BLOOD COUNT 9.7 10^3/uL (4.3-11.0)
[2020-04-19 06:09] LABS: ALBUMIN 3.8 GM/DL (3.2-4.5); CHLORIDE 102 MMOL/L (98-107); POTASSIUM 3.9 MMOL/L (3.6-5.0); SODIUM 136 MMOL/L (135-145)
[2020-04-19 06:10] LABS: CALCIUM 9.2 MG/DL (8.5-10.1)
[2020-04-19 06:11] LABS: GLUCOSE 119 MG/DL (70-105)
[2020-04-19 06:12] LABS: TOTAL PROTEIN 7.1 GM/DL (6.4-8.2)
[2020-04-19 06:13] LABS: BILIRUBIN,TOTAL 0.5 MG/DL (0.1-1.0); CARBON DIOXIDE 23 MMOL/L (21-32)
[2020-04-19 06:15] LABS: ALKALINE PHOSPHATASE 57 U/L (40-136); CREATININE SERUM 0.68 MG/DL (0.60-1.30); GFR ESTIMATED > 60
[2020-04-19 06:16] LABS: BUN/CREATININE RATIO 13
[2020-04-19 06:18] LABS: ALANINE AMINOTRANSFERASE 36 U/L (0-55)
--- NOTE | 2020-04-19 06:39 | Anesthesia-General Post-Op ---
General Patient Condition Mental Status/LOC: Same as Preop Cardiovascular: Satisfactory Nausea/Vomiting: Absent Respiratory: Satisfactory Pain: Controlled Complications: Absent Post Op Complications Complications None Follow Up Care/Instructions Patient Instructions None needed. Anesthesia/Patient Condition Patient Condition Patient is doing well, no complaints, stable vital signs, no apparent adverse anesthesia problems. No complications reported per nursing. SATNAM NJ CRNA Apr 19, 2020 06:39
[2020-04-19] MEDS: LACTATED RINGERS 1,000 ML IV SCH (06:51)
[2020-04-19] MEDS: VANCOMYCIN INJECTION 1,000 MG in NS (IVPB) 250 ML IV SCH ×2 (06:51→16:50)
[2020-04-19] MEDS: buPROPion SR 150 MG (WELLBUTRIN SR) TAB PO SCH ×2 (08:04→19:22)
--- NOTE | 2020-04-19 08:26 | Progress Note - Hospitalist ---
EDENCHANDAN,MED STUDENT 04/19/20 0826: Subjective HPI/CC On Admission Date Seen by Provider: Apr 19, 2020 Time Seen by Provider: 08:00 Patient is a 54yo female who had a L Achilles tendon repair in January [address] Ba. She had been progressing well until , when she noticed some swelling and pain. She also noted mild fevers, chills and generalized body aches. She presented to the [facility] ED and was treated with Vancomycin and discharged home with doxycycline and Bactrim. Despite the abx she experienced worsening pain and swelling over the weekend, and began to notice an "oozing and nasty scab", and felt like it "wasn't healing right". 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 She was scheduled for a follow up appointment with Dr. Ba two weeks ago, but was unable to make it as she was quarantined at home due to a possible COVID exposure at work. She was also scheduled for a follow up appointment this morning, and during this visit she was told she would need to be hospitalized and was scheduled for an irrigation and debridement today. Subjective/Events-last exam Had irrigation and debridement of L achilles tendon repair yesterday, no complications. Pt. reports some nausea and a ESPINOSA this morning, no other comp laints. Pain well controlled with Percocet. Received 1 dose of Recephin last night, receiving 2nd bag of Vanc this morning. Objective Exam Vital Signs Vital Signs Date Time Temp Pulse Resp B/P (MAP) Pulse Ox O2 Delivery O2 Flow Rate FiO2 04/19/20 04:01 36.6 75 18 118/75 (89) 91 Room Air 04/18/20 19:21 3.00 Capillary Refill : Less Than 3 Seconds General Appearance: No Apparent Distress, WD/WN HEENT: Pharynx Normal, Moist Mucous Membranes Neck: Full Range of Motion, Non Tender, Supple Respiratory: Lungs Clear, No Accessory Muscle Use, No Respiratory Distress Cardiovascular: Regular Rate, Rhythm, No Edema, No Murmur Gastrointestinal: Normal Bowel Sounds, Non Tender, Soft Extremity: Normal Capillary Refill, No Calf Tenderness Neurologic/Psychiatric: Alert, Oriented x3, Normal Mood/Affect Results/Procedures Lab Laboratory Tests 04/19/20 05:10 Patient resulted labs reviewed. Assessment/Plan Assessment and Plan Assess & Plan/Chief Complaint Cellulitis of L ankle S/P L Achilles tendon repair January 2020 -underwent irrigation and debridement yesterday -currently receiving Rocephin and Vanc -regular diet as tolerated -Dr. Ba following Hypertension -Continue to monitor Anxiety -Will restart patient's home medications CHUYITA STONE MD 04/19/20 1319: Assessment/Plan Assessment and Plan Assess & Plan/Chief Complaint Patient reports feeling much better today. Pain well controlled. Tolerated surgery yesterday. Awaiting intraoperative cultures but agree with broad spectrum antibiotics at this time. Resume home anti-anxiety medications. Supervisory-Addendum Brief Verification & Attestation Participated in pt care: history, MDM, physical Personally performed: exam, history, MDM, supervision of care Care discussed with: Medical Student Procedures: n/a Results interpretation: Verified all documentation Verification and Attestation of Medical Student E/M Service A medical student performed and documented this service in my presence. I reviewed and verified all information documented by the medical student and made modifications to such information, when appropriate. I personally performed the physical exam and medical decision making. Chuyita Stone, Apr 19, 2020,13:18 CHANDAN HARMON,MED STUDENT Apr 19, 2020 08:26 CHUYITA STONE MD Apr 19, 2020 13:19
--- NOTE | 2020-04-19 10:58 | Progress Note ---
Standard Progress Note Progress Notes/Assess & Plan Date Seen by a Provider: Apr 19, 2020 Time Seen by a Provider: 10:56 Progress/Assessment & Plan feeling much better Vital Signs Date Time Temp Pulse Resp B/P (MAP) Pulse Ox O2 Delivery O2 Flow Rate FiO2 04/19/20 08:00 Room Air 04/19/20 08:00 37.0 76 20 137/71 (93) 92 Room Air 04/19/20 04:01 36.6 75 18 118/75 (89) 91 Room Air 04/19/20 00:23 36.2 86 20 112/71 (85) 93 Room Air 04/18/20 19:58 Room Air 04/18/20 19:21 36.8 86 20 121/80 (94) 97 Nasal Cannula 3.00 04/18/20 18:16 Nasal Cannula 3 04/18/20 18:16 36.7 22 128/81 (97) 94 Nasal Cannula 3 04/18/20 18:14 36.7 83 18 124/88 (100) 99 Nasal Cannula 3.00 04/18/20 18:10 24 128/81 (97) 95 Nasal Cannula 3 04/18/20 18:10 Nasal Cannula 3 04/18/20 18:00 17 136/84 (101) 96 Nasal Cannula 3 04/18/20 17:55 OxyMask 5 04/18/20 17:50 14 127/83 (98) 100 OxyMask 5 04/18/20 17:40 OxyMask 5 04/18/20 17:40 16 134/89 (104) 96 OxyMask 5 04/18/20 17:30 16 162/110 (127) 100 OxyMask 8 04/18/20 17:26 36.9 20 144/53 (83) 100 OxyMask 8 04/18/20 17:26 OxyMask 8 04/18/20 12:00 36.7 83 19 153/93 (113) 93 Room Air 04/18/20 11:00 Room Air I & O 04/19/20 07:00 Intake Total 3727.5 ml Output Total 700 ml Balance 3027.5 ml Laboratory Tests Test 04/18/20 12:45 04/19/20 05:10 Range/Units Coronavirus (COVID-19)(PCR) Negative Negative White Blood Count 9.7 4.3-11.0 10^3/uL Red Blood Count 3.43 L 3.80-5.11 10^6/uL Hemoglobin 10.3 L 11.5-16.0 g/dL Hematocrit 32 L 35-52 % Mean Corpuscular Volume 94 80-99 fL Mean Corpuscular Hemoglobin 30 25-34 pg Mean Corpuscular Hemoglobin Concent 32 32-36 g/dL Red Cell Distribution Width 12.6 10.0-14.5 % Platelet Count 312 130-400 10^3/uL Mean Platelet Volume 9.5 9.0-12.2 fL Immature Granulocyte % (Auto) 1 % Neutrophils (%) (Auto) 69 42-75 % Lymphocytes (%) (Auto) 18 12-44 % Monocytes (%) (Auto) 12 0-12 % Eosinophils (%) (Auto) 1 0-10 % Basophils (%) (Auto) 0 0-10 % Neutrophils # (Auto) 6.7 1.8-7.8 10^3/uL Lymphocytes # (Auto) 1.7 1.0-4.0 10^3/uL Monocytes # (Auto) 1.2 H 0.0-1.0 10^3/uL Eosinophils # (Auto) 0.1 0.0-0.3 10^3/uL Basophils # (Auto) 0.0 0.0-0.1 10^3/uL Immature Granulocyte # (Auto) 0.1 0.0-0.1 10^3/uL Sodium Level 136 135-145 MMOL/L Potassium Level 3.9 3.6-5.0 MMOL/L Chloride Level 102 98-107 MMOL/L Carbon Dioxide Level 23 21-32 MMOL/L Anion Gap 11 5-14 MMOL/L Blood Urea Nitrogen 9 7-18 MG/DL Creatinine 0.68 0.60-1.30 MG/DL Estimat Glomerular Filtration Rate > 60 BUN/Creatinine Ratio 13 Glucose Level 119 H 70-105 MG/DL Calcium Level 9.2 8.5-10.1 MG/DL Corrected Calcium 9.4 8.5-10.1 MG/DL Total Bilirubin 0.5 0.1-1.0 MG/DL Aspartate Amino Transf (AST/SGOT) 18 5-34 U/L Alanine Aminotransferase (ALT/SGPT) 36 0-55 U/L Alkaline Phosphatase 57 40-136 U/L Total Protein 7.1 6.4-8.2 GM/DL Albumin 3.8 3.2-4.5 GM/DL L foot dressing intact. NVI distally s/p I and L Achilles await culture results NPO after Midnight will assess tomorrow for possible repeat I and D SAL ROBERTS MD Apr 19, 2020 10:58
[2020-04-19] MEDS: ONDANSETRON 4 MG/2 ML (SDV) Z0FRAN IVP PRN ×2 (13:20→18:04)
--- NOTE | 2020-04-19 14:26 | NUR ---
RD ASSESSMENT PMHx: no significant PMH; SurgHx - L Achilles heel repair (01/2020) PT INTERACTION: Pt was awake and pleasant during nutrition consult for MST score. Pt states current appetite is getting better. Note avg PO intake 67% x3meal, per chart review. Pt states following a ketogenic or "carnivore" diet at home, and has no issues with chewing/swallowing food. Pt states some recent issues with nausea, and that her last BM was 04/17. Note pt not currently on bowel regimen per chart review. Pt states some recent wt gain, but unsure of amount/timeframe. Note unable to determine recent wt hx, per chart review. Note presence of wound (L Achilles tendon), per chart review. Est. kcal needs: 2456-8635 kcal | 15-18 kcal/kg Est. Pro needs: 113-136 g Pro | 0.8-1.0 g Pro/kg PES STATEMENT: Inadequate oral intake (NI-2.1) related to loss of appetite, and nausea, as evidenced by pt interview, and avg PO intake 67% x3meal, per chart review. Inadequate protein intake (NI-5.6.1) related to increased protein needs as evidenced by presence of wound (L Achilles tendon). INTERVENTION: Continue with current diet order of Regular diet. Pt may benefit from nutrition supplementation if PO intake declines. Will continue to follow and reassess as pt needs, intake, and status change. Christopher CALDERON, MS RD LD [phone] cell
[2020-04-19] MEDS: cefTRIAXone FOR IV USE 1,000 MG in WATER (STERILE) FOR INJECTION 10 ML IV SCH (16:49)
[2020-04-19] MEDS: LACTOBACILLUS ACIDOPHILUS (PROBIOTIC) CAPSULE PO SCH (16:50)
[2020-04-20] MEDS: oxyCODONE/APAP 5/325MG (PERCOCET 5) TABLET PO PRN ×6 (00:19→23:57)
[2020-04-20] MEDS: ONDANSETRON 4 MG/2 ML (SDV) Z0FRAN IVP PRN ×3 (00:19→15:41)
[2020-04-20 05:05] VITALS: BP 159/85
[2020-04-20] MEDS: VANCOMYCIN INJECTION 1,000 MG in NS (IVPB) 250 ML IV SCH (05:16)
[2020-04-20] MEDS ORDERED: TROUGH ORDER-PHARMACY XX NR (05:30)
[2020-04-20] MEDS: morphine INJ 4 MG/ML 1 ML (VIAL/SYRINGE) IVP PRN (06:06)
[2020-04-20 06:07] LABS: BASOPHILS % (AUTO) 1 % (0-10); EOSINOPHILS # (AUTO) 0.2 10^3/uL (0.0-0.3); EOSINOPHILS % (AUTO) 2 % (0-10); HEMATOCRIT 33 % (35-52); LYMPHOCYTES # (AUTO) 1.6 10^3/uL (1.0-4.0); LYMPHOCYTES % (AUTO) 25 % (12-44); MEAN CORPUSCULAR HEMOGLOBIN 31 pg (25-34); MEAN CORPUSCULAR HGB CONC 33 g/dL (32-36); MEAN CORPUSCULAR VOLUME 93 fL (80-99); MEAN PLATELET VOLUME 9.3 fL (9.0-12.2); MONOCYTES # (AUTO) 0.8 10^3/uL (0.0-1.0); MONOCYTES % (AUTO) 12 % (0-12); NEUTROPHILS # (AUTO) 3.8 10^3/uL (1.8-7.8); NEUTROPHILS % (AUTO) 59 % (42-75); PLATELET COUNT 283 10^3/uL (130-400); WHITE BLOOD COUNT 6.4 10^3/uL (4.3-11.0)
[2020-04-20 06:22] LABS: ALBUMIN 3.7 GM/DL (3.2-4.5)
[2020-04-20 06:23] LABS: CHLORIDE 104 MMOL/L (98-107); POTASSIUM 4.1 MMOL/L (3.6-5.0); SODIUM 139 MMOL/L (135-145)
[2020-04-20 06:24] LABS: CALCIUM 9.1 MG/DL (8.5-10.1)
[2020-04-20 06:25] LABS: GLUCOSE 122 MG/DL (70-105); TOTAL PROTEIN 6.9 GM/DL (6.4-8.2)
[2020-04-20 06:26] LABS: CARBON DIOXIDE 25 MMOL/L (21-32)
[2020-04-20 06:27] LABS: BILIRUBIN,TOTAL 0.4 MG/DL (0.1-1.0)
[2020-04-20 06:28] LABS: ALKALINE PHOSPHATASE 54 U/L (40-136)
[2020-04-20 06:29] LABS: CREATININE SERUM 0.69 MG/DL (0.60-1.30); GFR ESTIMATED > 60
[2020-04-20 06:30] LABS: BUN/CREATININE RATIO 13
[2020-04-20 06:31] LABS: ALANINE AMINOTRANSFERASE 31 U/L (0-55)
[2020-04-20 06:40] LABS: VANCOMYCIN,TROUGH 5.5 UG/ML (10.0-20.0)
--- NOTE | 2020-04-20 07:15 | NUR ---
Dr. Hawkins states patient can resume regular diet and will not be getting the procedure today. States patient does not have to wear boot if desired.
--- NOTE | 2020-04-20 07:35 | Progress Note ---
Standard Progress Note Progress Notes/Assess & Plan Date Seen by a Provider: Apr 20, 2020 Time Seen by a Provider: 07:12 Progress/Assessment & Plan feeling much better Vital Signs Date Time Temp Pulse Resp B/P (MAP) Pulse Ox O2 Delivery O2 Flow Rate FiO2 04/19/20 08:00 Room Air 04/19/20 08:00 37.0 76 20 137/71 (93) 92 Room Air 04/19/20 04:01 36.6 75 18 118/75 (89) 91 Room Air 04/19/20 00:23 36.2 86 20 112/71 (85) 93 Room Air 04/18/20 19:58 Room Air 04/18/20 19:21 36.8 86 20 121/80 (94) 97 Nasal Cannula 3.00 04/18/20 18:16 Nasal Cannula 3 04/18/20 18:16 36.7 22 128/81 (97) 94 Nasal Cannula 3 04/18/20 18:14 36.7 83 18 124/88 (100) 99 Nasal Cannula 3.00 04/18/20 18:10 24 128/81 (97) 95 Nasal Cannula 3 04/18/20 18:10 Nasal Cannula 3 04/18/20 18:00 17 136/84 (101) 96 Nasal Cannula 3 04/18/20 17:55 OxyMask 5 04/18/20 17:50 14 127/83 (98) 100 OxyMask 5 04/18/20 17:40 OxyMask 5 04/18/20 17:40 16 134/89 (104) 96 OxyMask 5 04/18/20 17:30 16 162/110 (127) 100 OxyMask 8 04/18/20 17:26 36.9 20 144/53 (83) 100 OxyMask 8 04/18/20 17:26 OxyMask 8 04/18/20 12:00 36.7 83 19 153/93 (113) 93 Room Air 04/18/20 11:00 Room Air I & O 04/19/20 07:00 Intake Total 3727.5 ml Output Total 700 ml Balance 3027.5 ml Laboratory Tests Test 04/18/20 12:45 04/19/20 05:10 Range/Units Coronavirus (COVID-19)(PCR) Negative Negative White Blood Count 9.7 4.3-11.0 10^3/uL Red Blood Count 3.43 L 3.80-5.11 10^6/uL Hemoglobin 10.3 L 11.5-16.0 g/dL Hematocrit 32 L 35-52 % Mean Corpuscular Volume 94 80-99 fL Mean Corpuscular Hemoglobin 30 25-34 pg Mean Corpuscular Hemoglobin Concent 32 32-36 g/dL Red Cell Distribution Width 12.6 10.0-14.5 % Platelet Count 312 130-400 10^3/uL Mean Platelet Volume 9.5 9.0-12.2 fL Immature Granulocyte % (Auto) 1 % Neutrophils (%) (Auto) 69 42-75 % Lymphocytes (%) (Auto) 18 12-44 % Monocytes (%) (Auto) 12 0-12 % Eosinophils (%) (Auto) 1 0-10 % Basophils (%) (Auto) 0 0-10 % Neutrophils # (Auto) 6.7 1.8-7.8 10^3/uL Lymphocytes # (Auto) 1.7 1.0-4.0 10^3/uL Monocytes # (Auto) 1.2 H 0.0-1.0 10^3/uL Eosinophils # (Auto) 0.1 0.0-0.3 10^3/uL Basophils # (Auto) 0.0 0.0-0.1 10^3/uL Immature Granulocyte # (Auto) 0.1 0.0-0.1 10^3/uL Sodium Level 136 135-145 MMOL/L Potassium Level 3.9 3.6-5.0 MMOL/L Chloride Level 102 98-107 MMOL/L Carbon Dioxide Level 23 21-32 MMOL/L Anion Gap 11 5-14 MMOL/L Blood Urea Nitrogen 9 7-18 MG/DL Creatinine 0.68 0.60-1.30 MG/DL Estimat Glomerular Filtration Rate > 60 BUN/Creatinine Ratio 13 Glucose Level 119 H 70-105 MG/DL Calcium Level 9.2 8.5-10.1 MG/DL Corrected Calcium 9.4 8.5-10.1 MG/DL Total Bilirubin 0.5 0.1-1.0 MG/DL Aspartate Amino Transf (AST/SGOT) 18 5-34 U/L Alanine Aminotransferase (ALT/SGPT) 36 0-55 U/L Alkaline Phosphatase 57 40-136 U/L Total Protein 7.1 6.4-8.2 GM/DL Albumin 3.8 3.2-4.5 GM/DL L foot dressing intact. NVI distally s/p I and L Achilles await culture results NPO after Midnight will assess tomorrow for possible repeat I and D Final Diagnosis no complaints Vital Signs Date Time Temp Pulse Resp B/P (MAP) Pulse Ox O2 Delivery O2 Flow Rate FiO2 04/20/20 05:05 36.5 75 18 159/85 (109) 97 Room Air 04/19/20 23:53 36.7 76 18 121/68 (85) 90 Room Air 04/19/20 19:46 Room Air 04/19/20 19:40 36.9 88 18 140/77 (98) 96 Room Air 04/19/20 16:00 36.0 83 18 132/75 (94) 90 Room Air 04/19/20 12:00 36.8 82 18 114/66 (82) 91 Room Air 04/19/20 08:00 Room Air 04/19/20 08:00 37.0 76 20 137/71 (93) 92 Room Air I & O 04/20/20 07:00 Intake Total 4360 ml Output Total 4975 ml Balance -615 ml Laboratory Tests Test 04/20/20 05:30 04/20/20 05:40 Range/Units Sodium Level 139 135-145 MMOL/L Potassium Level 4.1 3.6-5.0 MMOL/L Chloride Level 104 98-107 MMOL/L Carbon Dioxide Level 25 21-32 MMOL/L Anion Gap 10 5-14 MMOL/L Blood Urea Nitrogen 9 7-18 MG/DL Creatinine 0.69 0.60-1.30 MG/DL Estimat Glomerular Filtration Rate > 60 BUN/Creatinine Ratio 13 Glucose Level 122 H 70-105 MG/DL Calcium Level 9.1 8.5-10.1 MG/DL Corrected Calcium 9.3 8.5-10.1 MG/DL Total Bilirubin 0.4 0.1-1.0 MG/DL Aspartate Amino Transf (AST/SGOT) 15 5-34 U/L Alanine Aminotransferase (ALT/SGPT) 31 0-55 U/L Alkaline Phosphatase 54 40-136 U/L Total Protein 6.9 6.4-8.2 GM/DL Albumin 3.7 3.2-4.5 GM/DL Vancomycin Level Trough 5.5 L 10.0-20.0 UG/ML White Blood Count 6.4 4.3-11.0 10^3/uL Red Blood Count 3.58 L 3.80-5.11 10^6/uL Hemoglobin 11.0 L 11.5-16.0 g/dL Hematocrit 33 L 35-52 % Mean Corpuscular Volume 93 80-99 fL Mean Corpuscular Hemoglobin 31 25-34 pg Mean Corpuscular Hemoglobin Concent 33 32-36 g/dL Red Cell Distribution Width 12.3 10.0-14.5 % Platelet Count 283 130-400 10^3/uL Mean Platelet Volume 9.3 9.0-12.2 fL Immature Granulocyte % (Auto) 1 % Neutrophils (%) (Auto) 59 42-75 % Lymphocytes (%) (Auto) 25 12-44 % Monocytes (%) (Auto) 12 0-12 % Eosinophils (%) (Auto) 2 0-10 % Basophils (%) (Auto) 1 0-10 % Neutrophils # (Auto) 3.8 1.8-7.8 10^3/uL Lymphocytes # (Auto) 1.6 1.0-4.0 10^3/uL Monocytes # (Auto) 0.8 0.0-1.0 10^3/uL Eosinophils # (Auto) 0.2 0.0-0.3 10^3/uL Basophils # (Auto) 0.0 0.0-0.1 10^3/uL Immature Granulocyte # (Auto) 0.1 0.0-0.1 10^3/uL suture line intact. No erythema or fluctuance s/p I and D left Achilles await sensitivities no sherley for repeat I and D currently SAL ROBERTS MD Apr 20, 2020 07:35
[2020-04-20] MEDS: buPROPion SR 150 MG (WELLBUTRIN SR) TAB PO SCH ×2 (07:53→20:05)
[2020-04-20] MEDS: LACTOBACILLUS ACIDOPHILUS (PROBIOTIC) CAPSULE PO SCH ×3 (07:56→18:22)
[2020-04-20 08:00] VITALS: BP 140/80
--- NOTE | 2020-04-20 11:07 | Progress Note - Hospitalist ---
CHANDAN HARMON,MED STUDENT 04/20/20 1107: Subjective HPI/CC On Admission Date Seen by Provider: Apr 20, 2020 Time Seen by Provider: 07:45 Patient is a 54yo female who had a L Achilles tendon repair in January [address] Ba. She had been progressing well until , when she noticed some swelling and pain. She also noted mild fevers, chills and generalized body aches. She presented to the [facility] ED and was treated with Vancomycin and discharged home with doxycycline and Bactrim. Despite the abx she experienced worsening pain and swelling over the weekend, and began to notice an "oozing and nasty scab", and felt like it "wasn't healing right". 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 She was scheduled for a follow up appointment with Dr. Ba two weeks ago, but was unable to make it as she was quarantined at home due to a possible COVID exposure at work. She was also scheduled for a follow up appointment this morning, and during this visit she was told she would need to be hospitalized and was scheduled for an irrigation and debridement today. Subjective/Events-last exam Continues to have some nausea, Zofran has helped and she has still been able to tolerate meals. Pain well controlled with Percocet and morphine. Has been afebrile but reports sweating overnight. Per Dr. Ba, will reassess tomorrow for possible need for repeat irrigation and debridement. Objective Exam Vital Signs Vital Signs Date Time Temp Pulse Resp B/P (MAP) Pulse Ox O2 Delivery O2 Flow Rate FiO2 04/20/20 08:42 Room Air 04/20/20 08:00 36.8 81 16 140/80 (100) 94 04/18/20 19:21 3.00 Capillary Refill : Less Than 3 Seconds General Appearance: No Apparent Distress, WD/WN HEENT: PERRL/EOMI, Pharynx Normal, Moist Mucous Membranes Neck: Full Range of Motion, Non Tender Respiratory: Normal Breath Sounds, No Accessory Muscle Use, No Respiratory Distress Cardiovascular: Regular Rate, Rhythm, No Edema, No Murmur, Normal Peripheral Pulses Gastrointestinal: Normal Bowel Sounds, Non Tender, Soft Extremity: Non Tender, No Calf Tenderness Neurologic/Psychiatric: Alert, Oriented x3, Normal Mood/Affect Results/Procedures Lab Laboratory Tests 04/20/20 05:30 04/20/20 05:40 Patient resulted labs reviewed. Assessment/Plan Assessment and Plan Assess & Plan/Chief Complaint Cellulitis of L ankle S/P L Achilles tendon repair January 2020 -underwent irrigation and debridement 02/16 -currently receiving Rocephin and Vanc -cultures pending -regular diet as tolerated, NPO after midnight -Dr. Ba plans to reassess for possible repeat irrigation & debridement tomorrow Hypertension -Continue to monitor Anxiety -Will restart patient's home medications CHUYITA STONE MD 04/20/20 1654: Assessment/Plan Assessment and Plan Assess & Plan/Chief Complaint Patient reports feeling not as well today overall. Discussed encouraging signs of no fever, no increasing WBC but will continue to monitor. Cultures growing staph. Continue current antibiotics until sensitivities available. Supervisory-Addendum Brief Verification & Attestation Participated in pt care: history, MDM, physical Personally performed: exam, history, MDM, supervision of care Care discussed with: Medical Student Procedures: n/a Results interpretation: Verified all documentation Verification and Attestation of Medical Student E/M Service A medical student performed and documented this service in my presence. I r eviewed and verified all information documented by the medical student and made modifications to such information, when appropriate. I personally performed the physical exam and medical decision making. Chuyita Stone, Apr 20, 2020,16:53 CHANDAN HARMON,MED STUDENT Apr 20, 2020 11:07 CHUYITA STONE MD Apr 20, 2020 16:54
[2020-04-20 11:54] VITALS: BP 137/84
[2020-04-20] MEDS: VANCOMYCIN INJECTION 1,250 MG in NS (IVPB) 250 ML IV SCH ×2 (13:26→22:53)
[2020-04-20 16:00] VITALS: BP 129/76
[2020-04-20] MEDS: cefTRIAXone FOR IV USE 1,000 MG in WATER (STERILE) FOR INJECTION 10 ML IV SCH (18:22)
[2020-04-20 20:00] VITALS: BP 130/74
--- NOTE | 2020-04-21 00:14 | NUR ---
Pt reports of itching post abt of vancomycin. New order from JAVIER Mendez for 25mg Benadryl IV q4 prn.
[2020-04-21 00:20] VITALS: BP 123/64
[2020-04-21] MEDS: diphenhydrAMINE 50 MG/ML INJ (BENADRYL) IVP PRN ×2 (00:32→10:43)
[2020-04-21] MEDS: VANCOMYCIN INJECTION 1,250 MG in NS (IVPB) 250 ML IV SCH (05:21)
[2020-04-21 06:03] LABS: BASOPHILS % (AUTO) 1 % (0-10); EOSINOPHILS # (AUTO) 0.2 10^3/uL (0.0-0.3); EOSINOPHILS % (AUTO) 4 % (0-10); HEMATOCRIT 34 % (35-52); HEMOGLOBIN 11.3 g/dL (11.5-16.0); LYMPHOCYTES # (AUTO) 1.9 10^3/uL (1.0-4.0); LYMPHOCYTES % (AUTO) 32 % (12-44); MEAN CORPUSCULAR HEMOGLOBIN 31 pg (25-34); MEAN CORPUSCULAR HGB CONC 33 g/dL (32-36); MEAN CORPUSCULAR VOLUME 94 fL (80-99); MEAN PLATELET VOLUME 9.3 fL (9.0-12.2); MONOCYTES # (AUTO) 0.7 10^3/uL (0.0-1.0); MONOCYTES % (AUTO) 13 % (0-12); NEUTROPHILS # (AUTO) 2.9 10^3/uL (1.8-7.8); NEUTROPHILS % (AUTO) 50 % (42-75); PLATELET COUNT 335 10^3/uL (130-400); WHITE BLOOD COUNT 5.9 10^3/uL (4.3-11.0)
[2020-04-21 06:31] LABS: ALANINE AMINOTRANSFERASE 27 U/L (0-55); ALBUMIN 3.7 GM/DL (3.2-4.5); ALKALINE PHOSPHATASE 56 U/L (40-136); BILIRUBIN,TOTAL 0.3 MG/DL (0.1-1.0); BUN/CREATININE RATIO 14; CALCIUM 9.5 MG/DL (8.5-10.1); CARBON DIOXIDE 26 MMOL/L (21-32); CHLORIDE 102 MMOL/L (98-107); CREATININE SERUM 0.76 MG/DL (0.60-1.30); GFR ESTIMATED > 60; GLUCOSE 128 MG/DL (70-105); SODIUM 138 MMOL/L (135-145); TOTAL PROTEIN 6.8 GM/DL (6.4-8.2)
[2020-04-21 08:00] VITALS: BP 133/83
--- NOTE | 2020-04-21 08:10 | Progress Note ---
Standard Progress Note Progress Notes/Assess & Plan Date Seen by a Provider: Apr 21, 2020 Time Seen by a Provider: 08:09 Progress/Assessment & Plan feeling much better Vital Signs Date Time Temp Pulse Resp B/P (MAP) Pulse Ox O2 Delivery O2 Flow Rate FiO2 04/19/20 08:00 Room Air 04/19/20 08:00 37.0 76 20 137/71 (93) 92 Room Air 04/19/20 04:01 36.6 75 18 118/75 (89) 91 Room Air 04/19/20 00:23 36.2 86 20 112/71 (85) 93 Room Air 04/18/20 19:58 Room Air 04/18/20 19:21 36.8 86 20 121/80 (94) 97 Nasal Cannula 3.00 04/18/20 18:16 Nasal Cannula 3 04/18/20 18:16 36.7 22 128/81 (97) 94 Nasal Cannula 3 04/18/20 18:14 36.7 83 18 124/88 (100) 99 Nasal Cannula 3.00 04/18/20 18:10 24 128/81 (97) 95 Nasal Cannula 3 04/18/20 18:10 Nasal Cannula 3 04/18/20 18:00 17 136/84 (101) 96 Nasal Cannula 3 04/18/20 17:55 OxyMask 5 04/18/20 17:50 14 127/83 (98) 100 OxyMask 5 04/18/20 17:40 OxyMask 5 04/18/20 17:40 16 134/89 (104) 96 OxyMask 5 04/18/20 17:30 16 162/110 (127) 100 OxyMask 8 04/18/20 17:26 36.9 20 144/53 (83) 100 OxyMask 8 04/18/20 17:26 OxyMask 8 04/18/20 12:00 36.7 83 19 153/93 (113) 93 Room Air 04/18/20 11:00 Room Air I & O 04/19/20 07:00 Intake Total 3727.5 ml Output Total 700 ml Balance 3027.5 ml Laboratory Tests Test 04/18/20 12:45 04/19/20 05:10 Range/Units Coronavirus (COVID-19)(PCR) Negative Negative White Blood Count 9.7 4.3-11.0 10^3/uL Red Blood Count 3.43 L 3.80-5.11 10^6/uL Hemoglobin 10.3 L 11.5-16.0 g/dL Hematocrit 32 L 35-52 % Mean Corpuscular Volume 94 80-99 fL Mean Corpuscular Hemoglobin 30 25-34 pg Mean Corpuscular Hemoglobin Concent 32 32-36 g/dL Red Cell Distribution Width 12.6 10.0-14.5 % Platelet Count 312 130-400 10^3/uL Mean Platelet Volume 9.5 9.0-12.2 fL Immature Granulocyte % (Auto) 1 % Neutrophils (%) (Auto) 69 42-75 % Lymphocytes (%) (Auto) 18 12-44 % Monocytes (%) (Auto) 12 0-12 % Eosinophils (%) (Auto) 1 0-10 % Basophils (%) (Auto) 0 0-10 % Neutrophils # (Auto) 6.7 1.8-7.8 10^3/uL Lymphocytes # (Auto) 1.7 1.0-4.0 10^3/uL Monocytes # (Auto) 1.2 H 0.0-1.0 10^3/uL Eosinophils # (Auto) 0.1 0.0-0.3 10^3/uL Basophils # (Auto) 0.0 0.0-0.1 10^3/uL Immature Granulocyte # (Auto) 0.1 0.0-0.1 10^3/uL Sodium Level 136 135-145 MMOL/L Potassium Level 3.9 3.6-5.0 MMOL/L Chloride Level 102 98-107 MMOL/L Carbon Dioxide Level 23 21-32 MMOL/L Anion Gap 11 5-14 MMOL/L Blood Urea Nitrogen 9 7-18 MG/DL Creatinine 0.68 0.60-1.30 MG/DL Estimat Glomerular Filtration Rate > 60 BUN/Creatinine Ratio 13 Glucose Level 119 H 70-105 MG/DL Calcium Level 9.2 8.5-10.1 MG/DL Corrected Calcium 9.4 8.5-10.1 MG/DL Total Bilirubin 0.5 0.1-1.0 MG/DL Aspartate Amino Transf (AST/SGOT) 18 5-34 U/L Alanine Aminotransferase (ALT/SGPT) 36 0-55 U/L Alkaline Phosphatase 57 40-136 U/L Total Protein 7.1 6.4-8.2 GM/DL Albumin 3.8 3.2-4.5 GM/DL L foot dressing intact. NVI distally s/p I and L Achilles await culture results NPO after Midnight will assess tomorrow for possible repeat I and D Final Diagnosis no complaints Vital Signs Date Time Temp Pulse Resp B/P (MAP) Pulse Ox O2 Delivery O2 Flow Rate FiO2 04/21/20 00:20 36.6 68 20 123/64 (83) 95 Room Air 04/20/20 20:51 Room Air 04/20/20 20:00 36.4 73 18 130/74 (92) 94 Room Air 04/20/20 16:00 36.6 71 20 129/76 (93) 96 Room Air 04/20/20 11:54 36.4 77 18 137/84 (101) 94 Room Air 04/20/20 08:42 Room Air I & O 04/21/20 07:00 Intake Total 3142.5 ml Output Total 4500 ml Balance -1357.5 ml Laboratory Tests Test 04/21/20 05:34 Range/Units White Blood Count 5.9 4.3-11.0 10^3/uL Red Blood Count 3.66 L 3.80-5.11 10^6/uL Hemoglobin 11.3 L 11.5-16.0 g/dL Hematocrit 34 L 35-52 % Mean Corpuscular Volume 94 80-99 fL Mean Corpuscular Hemoglobin 31 25-34 pg Mean Corpuscular Hemoglobin Concent 33 32-36 g/dL Red Cell Distribution Width 12.1 10.0-14.5 % Platelet Count 335 130-400 10^3/uL Mean Platelet Volume 9.3 9.0-12.2 fL Immature Granulocyte % (Auto) 1 % Neutrophils (%) (Auto) 50 42-75 % Lymphocytes (%) (Auto) 32 12-44 % Monocytes (%) (Auto) 13 H 0-12 % Eosinophils (%) (Auto) 4 0-10 % Basophils (%) (Auto) 1 0-10 % Neutrophils # (Auto) 2.9 1.8-7.8 10^3/uL Lymphocytes # (Auto) 1.9 1.0-4.0 10^3/uL Monocytes # (Auto) 0.7 0.0-1.0 10^3/uL Eosinophils # (Auto) 0.2 0.0-0.3 10^3/uL Basophils # (Auto) 0.0 0.0-0.1 10^3/uL Immature Granulocyte # (Auto) 0.1 0.0-0.1 10^3/uL Sodium Level 138 135-145 MMOL/L Potassium Level 4.0 3.6-5.0 MMOL/L Chloride Level 102 98-107 MMOL/L Carbon Dioxide Level 26 21-32 MMOL/L Anion Gap 10 5-14 MMOL/L Blood Urea Nitrogen 11 7-18 MG/DL Creatinine 0.76 0.60-1.30 MG/DL Estimat Glomerular Filtration Rate > 60 BUN/Creatinine Ratio 14 Glucose Level 128 H 70-105 MG/DL Calcium Level 9.5 8.5-10.1 MG/DL Corrected Calcium 9.7 8.5-10.1 MG/DL Total Bilirubin 0.3 0.1-1.0 MG/DL Aspartate Amino Transf (AST/SGOT) 16 5-34 U/L Alanine Aminotransferase (ALT/SGPT) 27 0-55 U/L Alkaline Phosphatase 56 40-136 U/L Total Protein 6.8 6.4-8.2 GM/DL Albumin 3.7 3.2-4.5 GM/DL LLE incision intact no purulunce or fluctuance s/p I and D L Achilles continue abx await sensitivities SAL ROBERTS MD Apr 21, 2020 08:10
[2020-04-21] MEDS: oxyCODONE/APAP 5/325MG (PERCOCET 5) TABLET PO PRN (08:19)
[2020-04-21] MEDS: LACTOBACILLUS ACIDOPHILUS (PROBIOTIC) CAPSULE PO SCH ×2 (08:19→13:11)
[2020-04-21] MEDS: buPROPion SR 150 MG (WELLBUTRIN SR) TAB PO SCH (08:19)
[2020-04-21] MEDS ORDERED: SENNA W/DOCUSATE (SENOKOT S) TABLET PO PRN (09:45)
--- NOTE | 2020-04-21 10:11 | Progress Note - Hospitalist ---
Subjective HPI/CC On Admission Date Seen by Provider: Apr 21, 2020 Time Seen by Provider: 08:00 Patient is a 54yo female who had a L Achilles tendon repair in January [address] Ba. She had been progressing well until , when she noticed some swelling and pain. She also noted mild fevers, chills and generalized body ac hes. She presented to the [facility] ED and was treated with Vancomycin and discharged home with doxycycline and Bactrim. Despite the abx she experienced worsening pain and swelling over the weekend, and began to notice an "oozing and nasty scab", and felt like it "wasn't healing right". 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 She was scheduled for a follow up appointment with Dr. Ba two weeks ago, but was unable to make it as she was quarantined at home due to a possible COVID exposure at work. She was also scheduled for a follow up ap pointment this morning, and during this visit she was told she would need to be hospitalized and was scheduled for an irrigation and debridement today. Subjective/Events-last exam Doing better this morning, pain well controlled. Denies nausea, has been tolerating food well. Has been getting up and ambulating. Denies any other concerns. Objective Exam Vital Signs Vital Signs Date Time Temp Pulse Resp B/P (MAP) Pulse Ox O2 Delivery O2 Flow Rate FiO2 04/21/20 08:00 36.6 68 10 133/83 (100) 96 Room Air 04/18/20 19:21 3.00 Capillary Refill : Less Than 3 Seconds General Appearance: No Apparent Distress, WD/WN HEENT: PERRL/EOMI, Pharynx Normal Neck: Full Range of Motion, Non Tender Respiratory: Normal Breath Sounds, No Accessory Muscle Use, No Respiratory Distress Cardiovascular: Regular Rate, Rhythm, No Edema, No Murmur, Normal Peripheral Pulses Gastrointestinal: Normal Bowel Sounds, Non Tender, Soft Extremity: Normal Capillary Refill, No Calf Tenderness, No Pedal Edema Neurologic/Psychiatric: Alert, Oriented x3, Normal Mood/Affect Skin: Normal Color, Warm/Dry Results/Procedures Lab Laboratory Tests 04/21/20 05:34 Patient resulted labs reviewed. Assessment/Plan Assessment and Plan Assess & Plan/Chief Complaint Cellulitis of L ankle S/P L Achilles tendon repair January 2020 -underwent irrigation and debridement 02/16 -cultures pending -currently receiving Rocephin and Vanc -regular diet as tolerated -per Dr. Ba, will plan to D/C home tomorrow pending culture results Hypertension -Continue to monitor Anxiety -Will restart patient's home medications CHANDAN HARMON,MED STUDENT Apr 21, 2020 10:11
[2020-04-21] MEDS ORDERED: TROUGH ORDER-PHARMACY XX NR (13:00)
--- NOTE | 2020-04-21 15:14 | NUR ---
Contacted Cristobal (patients listed support person) and updated her on patient status at this time.
--- NOTE | 2020-04-21 16:04 | Progress Note ---
Standard Progress Note Progress Notes/Assess & Plan Date Seen by a Provider: Apr 21, 2020 Time Seen by a Provider: 16:04 Progress/Assessment & Plan feeling much better Vital Signs Date Time Temp Pulse Resp B/P (MAP) Pulse Ox O2 Delivery O2 Flow Rate FiO2 04/19/20 08:00 Room Air 04/19/20 08:00 37.0 76 20 137/71 (93) 92 Room Air 04/19/20 04:01 36.6 75 18 118/75 (89) 91 Room Air 04/19/20 00:23 36.2 86 20 112/71 (85) 93 Room Air 04/18/20 19:58 Room Air 04/18/20 19:21 36.8 86 20 121/80 (94) 97 Nasal Cannula 3.00 04/18/20 18:16 Nasal Cannula 3 04/18/20 18:16 36.7 22 128/81 (97) 94 Nasal Cannula 3 04/18/20 18:14 36.7 83 18 124/88 (100) 99 Nasal Cannula 3.00 04/18/20 18:10 24 128/81 (97) 95 Nasal Cannula 3 04/18/20 18:10 Nasal Cannula 3 04/18/20 18:00 17 136/84 (101) 96 Nasal Cannula 3 04/18/20 17:55 OxyMask 5 04/18/20 17:50 14 127/83 (98) 100 OxyMask 5 04/18/20 17:40 OxyMask 5 04/18/20 17:40 16 134/89 (104) 96 OxyMask 5 04/18/20 17:30 16 162/110 (127) 100 OxyMask 8 04/18/20 17:26 36.9 20 144/53 (83) 100 OxyMask 8 04/18/20 17:26 OxyMask 8 04/18/20 12:00 36.7 83 19 153/93 (113) 93 Room Air 04/18/20 11:00 Room Air I & O 04/19/20 07:00 Intake Total 3727.5 ml Output Total 700 ml Balance 3027.5 ml Laboratory Tests Test 04/18/20 12:45 04/19/20 05:10 Range/Units Coronavirus (COVID-19)(PCR) Negative Negative White Blood Count 9.7 4.3-11.0 10^3/uL Red Blood Count 3.43 L 3.80-5.11 10^6/uL Hemoglobin 10.3 L 11.5-16.0 g/dL Hematocrit 32 L 35-52 % Mean Corpuscular Volume 94 80-99 fL Mean Corpuscular Hemoglobin 30 25-34 pg Mean Corpuscular Hemoglobin Concent 32 32-36 g/dL Red Cell Distribution Width 12.6 10.0-14.5 % Platelet Count 312 130-400 10^3/uL Mean Platelet Volume 9.5 9.0-12.2 fL Immature Granulocyte % (Auto) 1 % Neutrophils (%) (Auto) 69 42-75 % Lymphocytes (%) (Auto) 18 12-44 % Monocytes (%) (Auto) 12 0-12 % Eosinophils (%) (Auto) 1 0-10 % Basophils (%) (Auto) 0 0-10 % Neutrophils # (Auto) 6.7 1.8-7.8 10^3/uL Lymphocytes # (Auto) 1.7 1.0-4.0 10^3/uL Monocytes # (Auto) 1.2 H 0.0-1.0 10^3/uL Eosinophils # (Auto) 0.1 0.0-0.3 10^3/uL Basophils # (Auto) 0.0 0.0-0.1 10^3/uL Immature Granulocyte # (Auto) 0.1 0.0-0.1 10^3/uL Sodium Level 136 135-145 MMOL/L Potassium Level 3.9 3.6-5.0 MMOL/L Chloride Level 102 98-107 MMOL/L Carbon Dioxide Level 23 21-32 MMOL/L Anion Gap 11 5-14 MMOL/L Blood Urea Nitrogen 9 7-18 MG/DL Creatinine 0.68 0.60-1.30 MG/DL Estimat Glomerular Filtration Rate > 60 BUN/Creatinine Ratio 13 Glucose Level 119 H 70-105 MG/DL Calcium Level 9.2 8.5-10.1 MG/DL Corrected Calcium 9.4 8.5-10.1 MG/DL Total Bilirubin 0.5 0.1-1.0 MG/DL Aspartate Amino Transf (AST/SGOT) 18 5-34 U/L Alanine Aminotransferase (ALT/SGPT) 36 0-55 U/L Alkaline Phosphatase 57 40-136 U/L Total Protein 7.1 6.4-8.2 GM/DL Albumin 3.8 3.2-4.5 GM/DL L foot dressing intact. NVI distally s/p I and L Achilles await culture results NPO after Midnight will assess tomorrow for possible repeat I and D Final Diagnosis cultures reveal sensitive Staph wound clean and dry without erythema will DC to home on and FU on Saturday SAL ROBERTS MD Apr 21, 2020 16:04
[2020-04-21 16:05] VITALS: BP 134/73
[2020-04-21] MEDS ORDERED: CEPH-38 PO (16:06)
--- NOTE | 2020-04-21 16:08 | NUR ---
Notified Dr. Stone that patient is complaining of itching and rashes appearing. Dr. Stone requests to DC Vacomycin at this time.
--- NOTE | 2020-04-21 16:50 | NUR ---
Dr. Ba present at this time to assess patient. Reports patient can be discharged if able to find a ride. Patient states she has family on the way.
[2020-04-21 17:07] VITALS: BP 134/73
--- NOTE | 2020-04-21 21:10 | DISCHARGE SUMMARY ---
DATE OF SERVICE: DIAGNOSES: Left Achilles tendon infection, status post repair. SUMMARY: The patient is a 54-year-old female who 2 months ago underwent an Achilles tendon repair. She had a fall approximately 3 weeks postoperatively but was doing well until last week when she began to experience some oozing and erythema around her incision. She was treated with doxycycline and Bactrim; however, presented to the office on Saturday and was found to have discharge from her incision. She was admitted and underwent irrigation and debridement of the Achilles. Cultures were obtained, which revealed sensitive Staphylococcus aureus. The patient's postoperative course was uncomplicated. At the time of discharge, her wound was clean and dry. She had no discharge, no erythema or warmth. No fluctuance was noted. She was tolerating a diet well and tolerating pain with oral pain medication. CONDITION AT DISCHARGE: Good. DISCHARGE DIET: Regular. FOLLOWUP: Saturday at 10:15 in the [place] office. DISCHARGE MEDICATIONS: Home medications. Keflex one p.o. q.6 hours for 10 days and Percocet as needed for pain. ACTIVITIES: Weightbearing as tolerated with a walker. PROCEDURES DURING HOSPITALIZATION: Irrigation and debridement of the left Achilles. Job ID: [id number] DocumentID: [id number] Dictated Date: 04/21/2020 16:01:04 Complaint Evaluation Officer Date: 04/21/2020 21:09:38 Dictated By: SAL ROBERTS MD
--- NOTE | 2020-04-22 09:54 | Physician Query Clarification ---
PQ-Link Infection to Dev/Proc Admission/Discharge Admission Date: Apr 18, 2020 at 10:35 Discharge Date: Apr 21, 2020 at 17:23 Dr. Roberts, The medical record reflects the following clinical scenario: History/Risk Factors: s/p achilles tendon repair 2019 fall 3 weeks after surgical repair Clinical Findings: Cellulitis lt ankle, swelling, pain, leg oozing. purulence at the superior aspect of the incision extending around the repair site. There was some gross purulence superiorly. No abscess formation noted. No necrosis was noted. There was partial disruption of the repair. The nonabsorbable sutures were fully removed in order to remove all retained foreign bodies. The anterior aspect of the repair was intact. was partially disrupted. Treatment: debridement Lt. achilles tendon Question: Can you specify if the infection is due to/associated with lt achilles tendon repair? Please document a response in Progress Note or Discharge Summary. 1. Yes - infection is due to/associated with lt achilles tendon repair. 2. No - infection is not due to/associated with lt achilles tendon repair. 3. Other, with explanation of the clinical findings. 4. Clinically undetermined, no explanation for the clinical findings. PHYSICIAN RESPONSE Specify if infection: Clinically undetermined Please remember a lack of response to the above will prompt a phone page by [facility] staff. In responding to this query, please exercise your independent professional judgment. The purpose of this communication is to more accurately reflect the complexity of your patients condition. The fact that a question is asked does not imply that any particular answer is desired or expected. Thank you for your timely response to this clarification. Requestors name: [email or web address] THIS PHYSICIAN QUERY FORM IS A PERMANENT PART OF THE MEDICAL RECORD SUKI VIVAR Apr 22, 2020 09:54 SAL ROBERTS MD Apr 22, 2020 15:27
== END 2020-04-21 17:23 | disposition home or self-care (01) | DRG 581 ==
LOC: 4TH 10:35
PROVIDERS: ADMIT Orthopaedic Surgery; ATTEND Orthopaedic Surgery
PROC: 0LBT0ZZ Excision of Left Ankle Tendon, Open Approach (ICD-10-PCS; principal; 2020-04-18 16:22)
DX: L03.116 Cellulitis of left lower limb (principal); M76.62 Achilles tendinitis, left leg; B95.61 Methicillin susceptible Staphylococcus aureus infection as the cause of diseases classified elsewhere; I10 Essential (primary) hypertension; F41.9 Anxiety disorder, unspecified; Z20.822 Contact with and (suspected) exposure to COVID-19
CPT/HCPCS: 36415; 80053; 80202; 85025; 87070; 87075; 87077; 87081; 87186; 87205; 87635; 94664